=== PATIENT | female | born 1950 | race Caucasian/White ===

== ENCOUNTER → 2016-09-21 | Outpatient (CLI) | payer MEDICARE ==
[~2016-09-21] MED LIST: ADVAIR 250/5028 PUFF IN; ADVAIR DISK28 PUFFS IN; ALAVERT10 MG OR; AMLODIPINE10 MG PO; ASPIR-TRIN325 MG PO; ASPIRIN ADULT L81 M3 PO; ATIVAN0.5 MG PO; CARVEDILOL3.125 MG PO; CARVEDILOL6.25 MG PO; CELEXA20 MG PO; CLARITIN 10MG T10 MG PO; CLARITIN10 MG PO; COREG 3.125M3.125 MG PO; COREG 6.25MG6.25 MG PO; DALIRESP500 MCG PO; DELTASONE5 MG PO; DIAZEPAM2 M1 PO; DIOVAN320 MG PO; DOXAZOSIN MESYLA1 MG PO; DUONEB 3 MG/3 ML3 ML IH; EC NAPROSYN500 MG PO; FAMOTIDINE 20MG20 MG PO; FUROSEMIDE40 MG PO; GABAPENTIN100 M1 PO; GABAPENTIN100 MG PO; GLYBURIDE 5MG TA5 MG PO; GRALISE600 M1 PO; GUAIFENESIN PO; HYOSCYAMINE0.125 M1 PO; INSULIN GL100 UNITS/ SC; INSULIN GL100 UNITS1 SC; INSULIN RE100 UNITS/ SC; IPRATROPIUM BROM3 M1 IN; K-DUR 20MEQ TA20 MEQ PO; KEFLEX500 M1 PO; KLOR-CON M2020 MEQ PO; LANTUS INS100 UNITS/ SC; LASIX 40MG. TAB40 MG PO; LASIX40 MG PO; LEVAQUIN 750 M750 MG PO; LEVAQUIN500 MG PO; LEVSIN0.125 M1 PO; LISINOPRIL 20MG20 MG PO; MACROBID100 M3 PO; MEDROL 4MG. DOSE4 MG PO; METFORMIN 500M500 M1 PO; METFORMIN 500M500 MG PO; METOPROLOL SUCC25 M1 PO; METOPROLOL SUCC25 M2 PO; NAPROSYN 500MG500 MG PO; NEURONTIN 100100 MG PO; NORVASC 5MG. TAB5 MG PO; NOVOLOG FLEX100 U/ML SC; NYSTATIN AND TR1 CRE TP; OMNICEF 300 MG300 MG PO; ONGLYZA5 MG PO; PATANASE0.6% NS; PREDNISONE 10MG10 MG PO; PREDNISONE 20MG20 MG PO; PREDNISONE20 MG PO; RANITIDINE HCL150 MG PO; RANITIDINE150 M1 PO; SALMETEROL-F28 PUFFS IN; TESSALON PERLE100 M1 PO; THEO-24200 MG PO; TOPROL XL 25MG25 MG PO; TOUJEO300 U/ML SC; TUDORZA PR400 MCG/Ac IH; VENTOLIN H0.09 MG/AC IH; VITAMIN B-12100 MCG PO; ZAROXOLYN 2.5M2.5 MG PO
--- NOTE | 2016-09-22 10:27 | RADIOLOGY REPORT PS360 ---
MRI-BRAIN W/WO HISTORY: Right-sided headache with dizziness and blurred vision with memory loss. Squamous cell carcinoma of the lung. SQUAMOUS CELL CARCINOMA LUNG ORDERING PHYSICIAN: ROHAN LOPEZ MD PATIENT AGE: 66 years COMPARISON: None TECHNIQUE: Standard multiplanar multiecho sequences are performed without and with gadolinium enhancement . FINDINGS: No midline shift, mass effect, intracranial hemorrhage, or hydrocephalus is evident. No enhancing lesions are evident. No intra or extra-axial mass. There is mild generalized atrophy. There are scattered periventricular and subcortical T2 white matter hyperintensities. These do not demonstrate contrast enhancement or restricted diffusion. The cerebellopontine angles, cerebellum, and brainstem are unremarkable. The pituitary gland and optic chiasm have an unremarkable appearance. There is a small amount fluid in the left mastoid sinus. IMPRESSION: 1. No acute intracranial pathology. No convincing evidence of metastatic disease. 2. Mild atrophy with nonspecific T2 white matter hyperintensities consistent with ischemic gliotic change from microvascular disease. 3. Mild left mastoid sinus disease
== END ==
LOC: RAD 09:09
DX: C34.90 Malignant neoplasm of unspecified part of unspecified bronchus or lung (principal); Z03.89 Encounter for observation for other suspected diseases and conditions ruled out
CPT/HCPCS: A9576

== ENCOUNTER 2016-11-10 09:55 | Outpatient (CLI) | payer MEDICARE ==
[2016-11-10 10:52] VITALS: BP 153/76
[2016-11-10 11:17] VITALS: BP 146/77
[2016-11-10 11:35] VITALS: BP 148/74
== END 2016-11-10 11:40 | disposition home or self-care (01) ==
LOC: COP 09:55
DX: C34.12 Malignant neoplasm of upper lobe, left bronchus or lung (principal)
CPT/HCPCS: J1335; J1642

== ENCOUNTER 2016-11-11 09:40 | Outpatient (CLI) | payer MEDICARE ==
[~2016-11-11] VITALS: Ht 160 cm; Wt 80.7 kg
[2016-11-11 10:05] VITALS: BP 142/80
[2016-11-11 10:45] VITALS: BP 150/78
== END 2016-11-11 10:55 | disposition home or self-care (01) ==
LOC: COP 09:40
DX: C34.12 Malignant neoplasm of upper lobe, left bronchus or lung (principal)
CPT/HCPCS: J1335; J1642

== ENCOUNTER 2016-11-12 10:05 | Outpatient (CLI) | payer MEDICARE ==
[2016-11-12 10:30] VITALS: BP 126/66
== END 2016-11-12 11:00 | disposition home or self-care (01) ==
LOC: COP 10:05
DX: C34.12 Malignant neoplasm of upper lobe, left bronchus or lung (principal)

== ENCOUNTER → 2016-11-13 | Outpatient (CLI) | payer MEDICARE ==
[~2016-11-13] VITALS: Ht 160 cm; Wt 79.8 kg
[~2016-11-13] MED LIST changes: +PERCOCET1 TAB PO
[2016-11-13 10:39] VITALS: BP 140/70
[2016-11-13 11:38] VITALS: BP 135/64
== END ==
LOC: COP 08:00
DX: C34.12 Malignant neoplasm of upper lobe, left bronchus or lung (principal)
CPT/HCPCS: J1335

== ENCOUNTER 2016-11-14 09:56 | Outpatient (CLI) | payer MEDICARE ==
[~2016-11-14 09:56] MED LIST changes: -PERCOCET1 TAB PO
[2016-11-14] MEDS ORDERED: PERCOCET1 TAB PO (10:05)
[2016-11-14 10:08] VITALS: BP 148/73
[2016-11-14 10:38] VITALS: BP 144/71
[2016-11-14 11:00] VITALS: BP 142/69
== END 2016-11-14 11:00 | disposition home or self-care (01) ==
LOC: COP 09:56
DX: C34.12 Malignant neoplasm of upper lobe, left bronchus or lung (principal)
CPT/HCPCS: J1335; J1642

== ENCOUNTER 2016-11-15 11:00 | Outpatient (CLI) | payer MEDICARE ==
[~2016-11-15 11:00] MED LIST changes: +PERCOCET1 TAB PO
[2016-11-15 11:10] VITALS: BP 108/66
[2016-11-15 11:50] VITALS: BP 150/78
== END 2016-11-15 12:00 | disposition home or self-care (01) ==
LOC: COP 11:00
DX: C34.12 Malignant neoplasm of upper lobe, left bronchus or lung (principal)
CPT/HCPCS: J1335

== ENCOUNTER 2016-11-16 10:30 | Outpatient (CLI) | payer MEDICARE ==
[~2016-11-16] VITALS: Ht 160 cm; Wt 80.7 kg
[2016-11-16 11:00] VITALS: BP 134/80
[2016-11-16 11:30] VITALS: BP 134/77
== END 2016-11-16 11:50 | disposition home or self-care (01) ==
LOC: COP 10:30
DX: C34.12 Malignant neoplasm of upper lobe, left bronchus or lung (principal)
CPT/HCPCS: J1335; J1642

== ENCOUNTER 2016-11-17 09:55 | Outpatient (CLI) | payer MEDICARE ==
[2016-11-17 10:24] VITALS: BP 118/58
[2016-11-17 10:39] VITALS: BP 121/54
[2016-11-17 11:00] VITALS: BP 119/57
== END 2016-11-17 11:15 | disposition home or self-care (01) ==
LOC: COP 09:55
DX: C34.12 Malignant neoplasm of upper lobe, left bronchus or lung (principal)
CPT/HCPCS: J1335; J1642

== ENCOUNTER 2016-11-18 10:12 | Outpatient (CLI) | payer MEDICARE ==
[2016-11-18 10:22] VITALS: BP 131/67
[2016-11-18 11:05] VITALS: BP 129/74
== END 2016-11-18 11:10 | disposition home or self-care (01) ==
LOC: COP 10:12
DX: C34.12 Malignant neoplasm of upper lobe, left bronchus or lung (principal)
CPT/HCPCS: J1335; J1642

== ENCOUNTER → 2016-11-23 | Outpatient (CLI) | payer MEDICARE ==
--- NOTE | 2016-11-23 11:36 | RADIOLOGY REPORT PS360 ---
BONE DENSITOMETRY(HIP:LT SPINE HISTORY: POST MENOPUSAL ORDERING PHYSICIAN: David Cano MD PATIENT AGE: 66 years COMPARISON: None FINDINGS: The BMD measured at the L1-L4 is 0.909 g/sq cm with a T score of -2.3 consistent with osteopenia. Moderate fracture risk. Treatment recommended. The mean density of the hips is 0.866 g/sq cm meters squared with a T score of -1.2 consistent with osteopenia. IMPRESSION: Osteopenia. Moderate fracture risk, treatment recommended. Recommend follow-up exam November 2018
--- NOTE | 2016-11-24 21:56 | RADIOLOGY REPORT PS360 ---
DIG MAMM-SCREEN SARAH W/CAD CAD Screening ORDERING PHYSICIAN : David Cano MD PATIENT AGE: 66 years GENDER: Female COMPARISON: Previous mammograms: August 2015, March 2013 INDICATION: Routine screening no hormones no new complaints noncontributory family history. Indwelling catheter/ & Port right breast for lung cancer treatment TECHNIQUE: Standard CC and MLO images were obtained. R2 CAD reviewed. FINDINGS: Low-density breast bilaterally with no dominant mass nor suspicious calcifications. No significant interval change since 2015 CAD highlights no significant findings.... Faint vascular calcifications bilaterally highlighted. IMPRESSION: Stable bilateral mammogram no new areas of concern. BI-RADS CATEGORY: 1_Negative RECOMMENDED FOLLOWUP: 12M 12 MONTH FOLLOW-UP (A letter has been sent to the patient regarding results of the study.)
== END ==
LOC: RAD 09:56
DX: Z12.31 Encounter for screening mammogram for malignant neoplasm of breast (principal); Z78.0 Asymptomatic menopausal state; Z13.820 Encounter for screening for osteoporosis
CPT/HCPCS: G0202

== ENCOUNTER 2017-02-20 17:53 | Inpatient (IN) | payer MEDICARE ==
[~2017-02-20] VITALS: Ht 160 cm; Wt 78.6 kg
[~2017-02-20 17:53] MED LIST changes: +DICYCLOMINE HCL20 MG PO
--- OUTSIDE RECORDS SUMMARY | 2017-02-20 17:56 | External Medical Summary Rpt ---
Author Author , CHEYENNE FLORENTINO Address Unknown Phone [email or web address] Purpose Continuity of Care Document - 11-28-2016 through 2016 Results Labs Lab Lab Date Result Refere Interp Status Commen Order Detail nces retati t Range on Hemoglobin A1c in Blood (11-28-2016 09:55) Hemoglo 9.6 % 0.0% High complet bin A1c 017 - ed in 09:55 7.0% Blood
--- OUTSIDE RECORDS SUMMARY | 2017-02-20 17:56 | External Medical Summary Rpt ---
Author Author , CHEYENNE FLORENTINO Address Unknown Phone [email or web address] Purpose Continuity of Care Document - 11-28-2016 through 2016 Results Labs Lab Lab Date Result Refere Interp Status Commen Order Detail nces retati t Range on Hemoglobin A1c in Blood (11-28-2016 09:55) Hemoglo 9.6 % 0.0% High complet bin A1c 017 - ed in 09:55 7.0% Blood
--- OUTSIDE RECORDS SUMMARY | 2017-02-20 17:56 | External Medical Summary Rpt ---
Demographics Preferred Language Arabic Marital Status Unknown Christianity Affiliation Unknown Race Unknown Ethnic Group Unknown Author Author CHEYENNE Address Unknown Phone Immunization No patient found.
--- OUTSIDE RECORDS SUMMARY | 2017-02-20 17:56 | External Medical Summary Rpt ---
Demographics Preferred Language Kazakh Marital Status Unknown Latter-Day Affiliation Unknown Race Unknown Ethnic Group Unknown Author Author CHEYENNE Address Unknown Phone Immunization No patient found.
--- OUTSIDE RECORDS SUMMARY | 2017-02-20 17:56 | External Medical Summary Rpt ---
Author Author CHADD Address Unknown Phone [email or web address] Purpose Continuity of Care Document - through 2016
--- OUTSIDE RECORDS SUMMARY | 2017-02-20 17:56 | External Medical Summary Rpt ---
Author Author CHADD Address Unknown Phone [email or web address] Purpose Continuity of Care Document - through 2016
--- OUTSIDE RECORDS SUMMARY | 2017-02-20 17:58 | External Medical Summary Rpt ---
Author Author [facility] [employer], [facility] [employer] Organization [facility] [employer] Address Unknown Phone Unavailable Results CBC W Auto Differential panel in Blood Observa Value Referen Units Interpr Notes Date tion ce etation Range Basophils 0 - 0.2 K/MM3 Normal No Feb 07 inform2016 [#/volume on in 11:05 AM ] in source Blood by data Automated count Basophils 0.1 - 2.0 % Normal No Feb 07 /2016 leukocyte on in 11:05 AM s in source Blood by data Automated count Eosinophi 0.0 - 0.4 K/mm3 Normal No Feb 07 ls 2016 [#/volume on in 11:05 AM ] in source Blood by data Automated count Eosinophi 0.1 - % Normal No Feb 07 ls/100 12.0 2016 leukocyte on in 11:05 AM s in source Blood by data Automated count Granulocy 1.8 - 7.8 K/mm3 Normal No Feb 07 alejandra 2016 [#/volume on in 11:05 AM ] in source Blood by data Automated count Granulocy 37.0 - % Normal No Feb 07 alejandra/100 80.0 2016 leukocyte on in 11:05 AM s in source Blood by data Automated count Hematocri 37.0 - % Normal No Feb 07 t [Volume 47.0 ati 2016 on in 11:05 AM Fraction] source of Blood data Hemoglobi 12.2 - g/dL Normal No Feb 07 n 16.2 2016 [Mass/vol on in 11:05 AM ume] in source Blood data Lymphocyt 0.7 - 4.5 K/mm3 Normal No Feb 07 es 2016 [#/volume on in 11:05 AM ] in source Unspecifi data ed specimen by Automated count Lymphocyt 10 - 50.0 % Normal No Feb 07 es 2016 [#/volume on in 11:05 AM ] in source Unspecifi data ed specimen by Automated count Erythrocy 27 - 31.2 pg Normal No Feb 07 te mean 2016 corpuscul on in 11:05 AM ar source hemoglobi data n [Entitic mass] Erythrocy 31.8 - g/dl Normal No Feb 07 te mean 35.4 2016 corpuscul on in 11:05 AM ar source hemoglobi data n concentra tion [Mass/vol ume] by Automated count Erythrocy 82.2 - fl Normal No Feb 07 te mean 97.8 2016 corpuscul on in 11:05 AM ar volume source [Entitic data volume] by Automated count Monocytes 0.1 - 1.0 K/mm3 Normal No Feb 072016 [#/volume on in 11:05 AM ] in source Blood by data Automated count Monocytes 1.7 - 9.3 % Normal No Feb 072016 leukocyte on in 11:05 AM s in source Blood by data Automated count Platelet 7.4 - fl Low No Feb 07 mean 10.4 2016 volume on in 11:05 AM [Entitic source volume] data in Blood by Automated count Platelets 142 - 424 K/mm3 Normal No Feb 072016 [#/volume on in 11:05 AM ] in source Blood data Erythrocy 4.2 - 5.4 M/mm3 Normal No Feb 07 alejandra 2016 [#/volume on in 11:05 AM ] in source Amniotic data fluid Erythrocy 11.5 - % Normal No Feb 07 te 17.5 2016 distribut on in 11:05 AM ion width source [Entitic data volume] by Automated count Leukocyte 4.8 - K/MM3 Normal No Feb 07 s 10.8 2016 [#/volume on in 11:05 AM ] in source Blood data CBC W Auto Differential panel in Blood Observa Value Referen Units Interpr Notes Date tion ce etation Range Basophils 0 - 0.2 K/MM3 Normal No Jan 25ati 2016 9:55 [#/volume on in AM ] in source Blood by data Automated count Basophils 0.1 - 2.0 % Normal No Jan 25 informati 2016 9:55 leukocyte on in AM s in source Blood by data Automated count Eosinophi 0.0 - 0.4 K/mm3 Normal No Jan 25 ls informati 2016 9:55 [#/volume on in AM ] in source Blood by data Automated count Eosinophi 0.1 - % Normal No Jan 25/100 12.0 informati 2017 9:55 leukocyte on in AM s in source Blood by data Automated count Granulocy 1.8 - 7.8 K/mm3 Normal No Jan 25 alejandra informati 2017 9:55 [#/volume on in AM ] in source Blood by data Automated count Granulocy 37.0 - % Normal No Jan 25 alejandra/100 80.0 informati 2017 9:55 leukocyte on in AM s in source Blood by data Automated count Hematocri 37.0 - % Normal No Jan 25 t [Volume 47.0 informati 2017 9:55 on in AM Fraction] source of Blood data Hemoglobi 12.2 - g/dL Normal No Jan 25 n 16.2 informati 2017 9:55 [Mass/vol on in AM ume] in source Blood data Lymphocyt 0.7 - 4.5 K/mm3 Normal No Jan 25 es informati 2017 9:55 [#/volume on in AM ] in source Unspecifi data ed specimen by Automated count Lymphocyt 10 - 50.0 % Normal No Jan 25 es informati 2016 9:55 [#/volume on in AM ] in source Unspecifi data ed specimen by Automated count Erythrocy 27 - 31.2 pg Normal No Jan 25 te mean informati 2016 9:55 corpuscul on in AM ar source hemoglobi data n [Entitic mass] Erythrocy 31.8 - g/dl Normal No Jan 25 te mean 35.4 informati 2016 9:55 corpuscul on in AM ar source hemoglobi data n concentra tion [Mass/vol ume] by Automated count Erythrocy 82.2 - fl Normal No Jan 25 te mean 97.8 informati 2016 9:55 corpuscul on in AM ar volume source [Entitic data volume] by Automated count Monocytes 0.1 - 1.0 K/mm3 Normal No Jan 25 informati 2017 9:55 [#/volume on in AM ] in source Blood by data Automated count Monocytes 1.7 - 9.3 % Normal No Jan 25 / informati 2017 9:55 leukocyte on in AM s in source Blood by data Automated count Platelet 7.4 - fl Low No Jan 25 mean 10.4 informati 2016 9:55 volume on in AM [Entitic source volume] data in Blood by Automated count Platelets 142 - 424 K/mm3 Normal No Jan 25 informati 2017 9:55 [#/volume on in AM ] in source Blood data Erythrocy 4.2 - 5.4 M/mm3 Normal No Jan 25 alejandra informati 2017 9:55 [#/volume on in AM ] in source Amniotic data fluid Erythrocy 11.5 - % Normal No Jan 25 te 17.5 informati 2017 9:55 distribut on in AM ion width source [Entitic data volume] by Automated count Leukocyte 4.8 - K/MM3 Normal No Jan 25 s 10.8 informati 2016 9:55 [#/volume on in AM ] in source Blood data Comprehensive metabolic 2000 panel in Serum or Plasma Observa Value Referen Units Interpr Notes Date tion ce etation Range Albumin/G 1.1 - 1.8 No Low No Jan 18 lobulin informati informati 2016 9:00 [Mass on in on in AM ratio] in source source Serum or data data Plasma Albumin 3.4 - 5.0 gm/dL Low No Jan 18 [Mass/vol informati 2016 9:00 ume] in on in AM Serum or source Plasma data Alkaline 46 - 116 U/L Normal No Jan 18 phosphata informati 2016 9:00 se on in AM [Enzymati source c data activity/ volume] in Serum or Plasma Bilirubin 0.2 - 1.0 mg/dL Normal No Jan 18 .total informati 2016 9:00 [Mass/vol on in AM ume] in source Serum or data Plasma Urea 7 - 18 mg/dL Normal No Jan 18 nitrogen informati 2016 9:00 [Mass/vol on in AM ume] in source Serum or data Plasma Calcium 8.5 - mg/dL Low No Jan 18 [Mass/vol 10.1 informati 2016 9:00 ume] in on in AM Serum or source Plasma data Chloride 98 - 107 mmoL/L Normal No Jan 18 [Moles/vo informati 2016 9:00 lume] in on in AM Serum or source Plasma data Carbon 21.0 - mmoL/L Normal No Jan 18 dioxide, 32.0 informati 2017 9:00 total on in AM [Moles/vo source lume] in data Serum or Plasma Creatinin 0.55 - mg/dL Normal No Jan 18 e 1.02 informati 2017 9:00 [Mass/vol on in AM ume] in source Serum or data Plasma Estimated 59- ML/MIN No REFERENCE Jan 18 informati RANGE: 2017 9:00 glomerula on in >60 AM r source ML/MIN/1. filtratio data 73 SQUARE n rate METERSIf (GF this patient is -A merican, then multiply theresult by 1.210. Globulin 1.3 - 3.2 gm/dL High No Jan 18 [Mass/vol informati 2016 9:00 ume] in on in AM Serum source data Glucose 74 - 106 mg/dL Normal No Jan 18 [Mass/vol informati 2016 9:00 ume] in on in AM Serum or source Plasma data Potassium 3.5 - 5.1 mmoL/L Normal No Jan 182016 9:00 [Moles/vo on in AM lume] in source Serum or data Plasma Sodium 136 - 145 mmoL/L Normal No Jan 18 [Moles/vo informati 2016 9:00 lume] in on in AM Serum or source Plasma data Aspartate 15 - 37 U/L Low No Jan 182016 9:00 aminotran on in AM sferase source [Enzymati data c activity/ volume] in Serum or Plasma Alanine 12 - 78 U/L Normal No Jan 18 aminotran informati 2016 9:00 sferase on in AM [Enzymati source c data activity/ volume] in Serum or Plasma Protein 6.4 - 8.2 gm/dL Normal No Jan 18 [Mass/vol informati 2016 9:00 ume] in on in AM Serum or source Plasma data CBC W Auto Differential panel in Blood Observa Value Referen Units Interpr Notes Date tion ce etation Range Basophils 0 - 0.2 K/MM3 Normal No Jan 182016 9:00 [#/volume on in AM ] in source Blood by data Automated count Basophils 0.1 - 2.0 % Normal No Jan 18 informati 2016 9:00 leukocyte on in AM s in source Blood by data Automated count Eosinophi 0.0 - 0.4 K/mm3 Normal No Jan 18 ls informati 2016 9:00 [#/volume on in AM ] in source Blood by data Automated count Eosinophi 0.1 - % Normal No Jan 18 ls/100 12.0 informati 2016 9:00 leukocyte on in AM s in source Blood by data Automated count Granulocy 1.8 - 7.8 K/mm3 Normal No Jan 18 alejandra ati 2016 9:00 [#/volume on in AM ] in source Blood by data Automated count Granulocy 37.0 - % Normal No Jan 18 alejandra/100 80.0 informati 2016 9:00 leukocyte on in AM s in source Blood by data Automated count Hematocri 37.0 - % Normal No Jan 18 t [Volume 47.0 informati 2016 9:00 on in AM Fraction] source of Blood data Hemoglobi 12.2 - g/dL Normal No Jan 18 n 16.2 informati 2016 9:00 [Mass/vol on in AM ume] in source Blood data Lymphocyt 0.7 - 4.5 K/mm3 Normal No Jan 18 es informati 2016 9:00 [#/volume on in AM ] in source Unspecifi data ed specimen by Automated count Lymphocyt 10 - 50.0 % Normal No Jan 18 es informati 2016 9:00 [#/volume on in AM ] in source Unspecifi data ed specimen by Automated count Erythrocy 27 - 31.2 pg Normal No Jan 18 te mean informati 2016 9:00 corpuscul on in AM ar source hemoglobi data n [Entitic mass] Erythrocy 31.8 - g/dl Normal No Jan 18 te mean 35.4 informati 2016 9:00 corpuscul on in AM ar source hemoglobi data n concentra tion [Mass/vol ume] by Automated count Erythrocy 82.2 - fl Normal No Jan 18 te mean 97.8 informati 2016 9:00 corpuscul on in AM ar volume source [Entitic data volume] by Automated count Monocytes 0.1 - 1.0 K/mm3 Normal No Jan 18 informati 2016 9:00 [#/volume on in AM ] in source Blood by data Automated count Monocytes 1.7 - 9.3 % Normal No Jan 18 / informati 2017 9:00 leukocyte on in AM s in source Blood by data Automated count Platelet 7.4 - fl Low No Jan 18 mean 10.4 informati 2016 9:00 volume on in AM [Entitic source volume] data in Blood by Automated count Platelets 142 - 424 K/mm3 Normal No Jan 18 informati 2016 9:00 [#/volume on in AM ] in source Blood data Erythrocy 4.2 - 5.4 M/mm3 Low No Jan 18 alejandra informati 2016 9:00 [#/volume on in AM ] in source Amniotic data fluid Erythrocy 11.5 - % Normal No Jan 18 te 17.5 informati 2017 9:00 distribut on in AM ion width source [Entitic data volume] by Automated count Leukocyte 4.8 - K/MM3 Normal No Jan 18 s 10.8 informati 2016 9:00 [#/volume on in AM ] in source Blood data CBC W Auto Differential panel in Blood Observa Value Referen Units Interpr Notes Date tion ce etation Range Basophils 0 - 0.2 K/MM3 Normal No Jan 04 informati 2016 8:15 [#/volume on in AM ] in source Blood by data Automated count Basophils 0.1 - 2.0 % Normal No Jan 04 /100 informati 2016 8:15 leukocyte on in AM s in source Blood by data Automated count Eosinophi 0.0 - 0.4 K/mm3 Normal No Jan 04 ls informati 2016 8:15 [#/volume on in AM ] in source Blood by data Automated count Eosinophi 0.1 - % Normal No Jan 04 ls/100 12.0 informati 2016 8:15 leukocyte on in AM s in source Blood by data Automated count Granulocy 1.8 - 7.8 K/mm3 Normal No Jan 04 alejandra informati 2016 8:15 [#/volume on in AM ] in source Blood by data Automated count Granulocy 37.0 - % Normal No Jan 04 alejandra/100 80.0 informati 2016 8:15 leukocyte on in AM s in source Blood by data Automated count Hematocri 37.0 - % Normal No Jan 04 t [Volume 47.0 informati 2016 8:15 on in AM Fraction] source of Blood data Hemoglobi 12.2 - g/dL Normal No Jan 04 n 16.2 informati 2016 8:15 [Mass/vol on in AM ume] in source Blood data Lymphocyt 0.7 - 4.5 K/mm3 Normal No Jan 04 es informati 2016 8:15 [#/volume on in AM ] in source Unspecifi data ed specimen by Automated count Lymphocyt 10 - 50.0 % Normal No Jan 04 es informati 2016 8:15 [#/volume on in AM ] in source Unspecifi data ed specimen by Automated count Erythrocy 27 - 31.2 pg Normal No Jan 04 te mean informati 2016 8:15 corpuscul on in AM ar source hemoglobi data n [Entitic mass] Erythrocy 31.8 - g/dl Normal No Jan 04 te mean 35.4 informati 2016 8:15 corpuscul on in AM ar source hemoglobi data n concentra tion [Mass/vol ume] by Automated count Erythrocy 82.2 - fl Normal No Jan 04 te mean 97.8 inform2016 8:15 corpuscul on in AM ar volume source [Entitic data volume] by Automated count Monocytes 0.1 - 1.0 K/mm3 Normal No Jan 04 inform2016 8:15 [#/volume on in AM ] in source Blood by data Automated count Monocytes 1.7 - 9.3 % Normal No Jan 04 /100 informati 2016 8:15 leukocyte on in AM s in source Blood by data Automated count Platelet 7.4 - fl Low No Jan 04 mean 10.4 informati 2016 8:15 volume on in AM [Entitic source volume] data in Blood by Automated count Platelets 142 - 424 K/mm3 Normal No Jan 04 inform2016 8:15 [#/volume on in AM ] in source Blood data Erythrocy 4.2 - 5.4 M/mm3 Normal No Jan 04 alejandra informati 2016 8:15 [#/volume on in AM ] in source Amniotic data fluid Erythrocy 11.5 - % Normal No Jan 04 te 17.5 informati 2016 8:15 distribut on in AM ion width source [Entitic data volume] by Automated count Leukocyte 4.8 - K/MM3 Normal No Jan 04 s 10.8 inform2016 8:15 [#/volume on in AM ] in source Blood data CBC W Auto Differential panel in Blood Observa Value Referen Units Interpr Notes Date tion ce etation Range Basophils 0 - 0.2 K/MM3 Normal No Jan 01 inform2016 [#/volume on in 11:15 AM ] in source Blood by data Automated count Basophils 0.1 - 2.0 % Normal No Jan 01 / informati 2016 leukocyte on in 11:15 AM s in source Blood by data Automated count Eosinophi 0.0 - 0.4 K/mm3 Normal No Jan 01 ls informati 2016 [#/volume on in 11:15 AM ] in source Blood by data Automated count Eosinophi 0.1 - % Normal No Jan 01 ls/100 12.0 informati 2016 leukocyte on in 11:15 AM s in source Blood by data Automated count Granulocy 1.8 - 7.8 K/mm3 Normal No Jan 01 alejandra informati 2016 [#/volume on in 11:15 AM ] in source Blood by data Automated count Granulocy 37.0 - % Normal No Jan 01 alejandra/100 80.0 informati 2016 leukocyte on in 11:15 AM s in source Blood by data Automated count Hematocri 37.0 - % Normal No Jan 01 t [Volume 47.0 informati 2016 on in 11:15 AM Fraction] source of Blood data Hemoglobi 12.2 - g/dL Normal No Jan 01 n 16.2 informati 2016 [Mass/vol on in 11:15 AM ume] in source Blood data Lymphocyt 0.7 - 4.5 K/mm3 Normal No Jan 01 es informati 2016 [#/volume on in 11:15 AM ] in source Unspecifi data ed specimen by Automated count Lymphocyt 10 - 50.0 % Normal No Jan 01 es informati 2016 [#/volume on in 11:15 AM ] in source Unspecifi data ed specimen by Automated count Erythrocy 27 - 31.2 pg Normal No Jan 01 te mean inform2016 corpuscul on in 11:15 AM ar source hemoglobi data n [Entitic mass] Erythrocy 31.8 - g/dl Normal No Jan 01 te mean 35.4 informati 2016 corpuscul on in 11:15 AM ar source hemoglobi data n concentra tion [Mass/vol ume] by Automated count Erythrocy 82.2 - fl Normal No Jan 01 te mean 97.8 informati 2016 corpuscul on in 11:15 AM ar volume source [Entitic data volume] by Automated count Monocytes 0.1 - 1.0 K/mm3 Normal No Jan 01 informati 2016 [#/volume on in 11:15 AM ] in source Blood by data Automated count Monocytes 1.7 - 9.3 % Normal No Jan 01 /100 informati 2017 leukocyte on in 11:15 AM s in source Blood by data Automated count Platelet 7.4 - fl Normal No Jan 01 mean 10.4 informati 2016 volume on in 11:15 AM [Entitic source volume] data in Blood by Automated count Platelets 142 - 424 K/mm3 Normal No Jan 01 informati 2016 [#/volume on in 11:15 AM ] in source Blood data Erythrocy 4.2 - 5.4 M/mm3 Normal No Jan 01 alejandra informati 2016 [#/volume on in 11:15 AM ] in source Amniotic data fluid Erythrocy 11.5 - % Normal No Jan 01 te 17.5 informati 2016 distribut on in 11:15 AM ion width source [Entitic data volume] by Automated count Leukocyte 4.8 - K/MM3 Normal No Jan 01 s 10.8 informati 2016 [#/volume on in 11:15 AM ] in source Blood data Glucose [Mass/volume] in Capillary blood by Glucometer Observa Value Referen Units Interpr Notes Date tion ce etation Range Glucose 70 - 110 mg/dl High No Jan 01 [Mass/vol informati 2016 ume] in on in 11:09 AM Capillary source blood by data Glucomete r Comprehensive metabolic 2000 panel in Serum or Plasma Observa Value Referen Units Interpr Notes Date tion ce etation Range COMMENTS TO CRACKER SPRAYER: DRAWN PER RN Albumin/G 1.1 - 1.8 No Low No Dec 28 lobulin informati informati 2016 8:15 [Mass on in on in AM ratio] in source source Serum or data data Plasma Albumin 3.4 - 5.0 gm/dL Low No Dec 28 [Mass/vol informati 2016 8:15 ume] in on in AM Serum or source Plasma data Alkaline 46 - 116 U/L Normal No Dec 28 phosphata informati 2016 8:15 se on in AM [Enzymati source c data activity/ volume] in Serum or Plasma Bilirubin 0.2 - 1.0 mg/dL Normal No Dec 28 .total informati 2016 8:15 [Mass/vol on in AM ume] in source Serum or data Plasma Urea 7 - 18 mg/dL Normal No Dec 28 nitrogen informati 2016 8:15 [Mass/vol on in AM ume] in source Serum or data Plasma Calcium 8.5 - mg/dL Low No Dec 28 [Mass/vol 10.1 informati 2017 8:15 ume] in on in AM Serum or source Plasma data Chloride 98 - 107 mmoL/L Normal No Dec 28 [Moles/vo informati 2016 8:15 lume] in on in AM Serum or source Plasma data Carbon 21.0 - mmoL/L Normal No Dec 28 dioxide, 32.0 informati 2017 8:15 total on in AM [Moles/vo source lume] in data Serum or Plasma Creatinin 0.55 - mg/dL High No Dec 28 e 1.02 informati 2017 8:15 [Mass/vol on in AM ume] in source Serum or data Plasma Creatinin 50 - 200 ML/MIN Normal No Dec 28 e renal informati 2016 8:15 clearance on in AM source predicted data by Cockcroft -Gault formula Estimated 59- ML/MIN Low REFERENCE Dec 28 RANGE: 2016 8:15 glomerula >60 AM r ML/MIN/1. filtratio 73 SQUARE n rate METERSIf (GF this patient is -A merican, then multiply theresult by 1.210. Globulin 1.3 - 3.2 gm/dL High No Dec 28 [Mass/vol informati 2016 8:15 ume] in on in AM Serum source data Glucose 74 - 106 mg/dL High No Dec 28 [Mass/vol informati 2016 8:15 ume] in on in AM Serum or source Plasma data Potassium 3.5 - 5.1 mmoL/L Normal No Dec 28 inform2016 8:15 [Moles/vo on in AM lume] in source Serum or data Plasma Sodium 136 - 145 mmoL/L Normal No Dec 28 [Moles/vo informati 2016 8:15 lume] in on in AM Serum or source Plasma data Aspartate 15 - 37 U/L Low No Dec 28 informati 2016 8:15 aminotran on in AM sferase source [Enzymati data c activity/ volume] in Serum or Plasma Alanine 12 - 78 U/L Normal No Dec 28 aminotran informati 2016 8:15 sferase on in AM [Enzymati source c data activity/ volume] in Serum or Plasma Protein 6.4 - 8.2 gm/dL Normal No Dec 28 [Mass/vol informati 2016 8:15 ume] in on in AM Serum or source Plasma data CBC W Auto Differential panel in Blood Observa Value Referen Units Interpr Notes Date tion ce etation Range COMMENTS TO CRACKER SPRAYER: DRAWN PER RN Basophils 0 - 0.2 K/MM3 Normal No Dec 28 informati 2016 8:15 [#/volume on in AM ] in source Blood by data Automated count Basophils 0.1 - 2.0 % Normal No Dec 28 /100 informati 2016 8:15 leukocyte on in AM s in source Blood by data Automated count Eosinophi 0.0 - 0.4 K/mm3 Normal No Dec 28 ls informati 2016 8:15 [#/volume on in AM ] in source Blood by data Automated count Eosinophi 0.1 - % Normal No Dec 28 ls/100 12.0 informati 2017 8:15 leukocyte on in AM s in source Blood by data Automated count Granulocy 1.8 - 7.8 K/mm3 Normal No Dec 28 alejandra informati 2016 8:15 [#/volume on in AM ] in source Blood by data Automated count Granulocy 37.0 - % Normal No Dec 28 alejandra/100 80.0 informati 2016 8:15 leukocyte on in AM s in source Blood by data Automated count Hematocri 37.0 - % Normal No Dec 28 t [Volume 47.0 informati 2016 8:15 on in AM Fraction] source of Blood data Hemoglobi 12.2 - g/dL Normal No Dec 28 n 16.2 informati 2016 8:15 [Mass/vol on in AM ume] in source Blood data Lymphocyt 0.7 - 4.5 K/mm3 Normal No Dec 28 es informati 2016 8:15 [#/volume on in AM ] in source Unspecifi data ed specimen by Automated count Lymphocyt 10 - 50.0 % Normal No Dec 28 es informati 2016 8:15 [#/volume on in AM ] in source Unspecifi data ed specimen by Automated count Erythrocy 27 - 31.2 pg Normal No Dec 28 te mean informati 2016 8:15 corpuscul on in AM ar source hemoglobi data n [Entitic mass] Erythrocy 31.8 - g/dl Normal No Dec 28 te mean 35.4 informati 2016 8:15 corpuscul on in AM ar source hemoglobi data n concentra tion [Mass/vol ume] by Automated count Erythrocy 82.2 - fl Normal No Dec 28 te mean 97.8 informati 2016 8:15 corpuscul on in AM ar volume source [Entitic data volume] by Automated count Monocytes 0.1 - 1.0 K/mm3 Normal No Dec 28 informati 2017 8:15 [#/volume on in AM ] in source Blood by data Automated count Monocytes 1.7 - 9.3 % Normal No Jayjay 21 /100 informati 2017 8:15 leukocyte on in AM s in source Blood by data Automated count Platelet 7.4 - fl Low No Dec 28 mean 10.4 informati 2016 8:15 volume on in AM [Entitic source volume] data in Blood by Automated count Platelets 142 - 424 K/mm3 Normal No Dec 28 informati 2016 8:15 [#/volume on in AM ] in source Blood data Erythrocy 4.2 - 5.4 M/mm3 Normal No Dec 28 alejandra informati 2016 8:15 [#/volume on in AM ] in source Amniotic data fluid Erythrocy 11.5 - % Normal No Dec 28 te 17.5 informati 2016 8:15 distribut on in AM ion width source [Entitic data volume] by Automated count Leukocyte 4.8 - K/MM3 Normal No Dec 28 s 10.8 informati 2016 8:15 [#/volume on in AM ] in source Blood data Basic metabolic panel in Blood Observa Value Referen Units Interpr Notes Date tion ce etation Range COMMENTS TO CRACKER SPRAYER: DRAWN PER RN SPECIMEN COMMENT: PT WAITING ON RESULTS Urea 7 - 18 mg/dL Normal No Dec 23 nitrogen informati 2016 [Mass/vol on in 11:03 AM ume] in source Serum or data Plasma Calcium 8.5 - mg/dL Low No Dec 23 [Mass/vol 10.1 informati 2016 ume] in on in 11:03 AM Serum or source Plasma data Chloride 98 - 107 mmoL/L Normal No Dec 23 [Moles/vo informati 2016 lume] in on in 11:03 AM Serum or source Plasma data Carbon 21.0 - mmoL/L Normal No Dec 23 dioxide, 32.0 informati 2016 total on in 11:03 AM [Moles/vo source lume] in data Serum or Plasma Creatinin 0.55 - mg/dL No No Dec 23 e 1.02 informati informati 2016 [Mass/vol on in on in 11:03 AM ume] in source source Serum or data data Plasma Estimated 59- ML/MIN No REFERENCE Dec 23 informati RANGE: 2017 glomerula on in >60 11:03 AM r source ML/MIN/1. filtratio data 73 SQUARE n rate METERSIf (GF this patient is -A merican, then multiply theresult by 1.210. Glucose 74 - 106 mg/dL High No Dec 16 [Mass/vol informati 2017 ume] in on in 11:03 AM Serum or source Plasma data Potassium 3.5 - 5.1 mmoL/L Low alert Dec 23 2016 [Moles/vo CRITICAL 11:03 AM lume] in RESULTS Serum or Plasma RESU LTS CALLED TO: [facility] 12/23/16 1125 Vikash,Rich jose luis Sodium 136 - 145 mmoL/L Normal No Dec 16 [Moles/vo informati 2016 lume] in on in 11:03 AM Serum or source Plasma data Comprehensive metabolic 2000 panel in Serum or Plasma Observa Value Referen Units Interpr Notes Date tion ce etation Range Albumin/G 1.1 - 1.8 No Low No Dec 14 lobulin informati informati 2016 8:30 [Mass on in on in AM ratio] in source source Serum or data data Plasma Albumin 3.4 - 5.0 gm/dL Low No Dec 14 [Mass/vol informati 2016 8:30 ume] in on in AM Serum or source Plasma data Alkaline 46 - 116 U/L Normal No Dec 14 phosphata informati 2016 8:30 se on in AM [Enzymati source c data activity/ volume] in Serum or Plasma Bilirubin 0.2 - 1.0 mg/dL Normal No Dec 14 .total informati 2016 8:30 [Mass/vol on in AM ume] in source Serum or data Plasma Urea 7 - 18 mg/dL Normal No Dec 21 nitrogen informati 2016 8:30 [Mass/vol on in AM ume] in source Serum or data Plasma Calcium 8.5 - mg/dL Low No Dec 21 [Mass/vol 10.1 informati 2016 8:30 ume] in on in AM Serum or source Plasma data Chloride 98 - 107 mmoL/L Normal No Dec 14 [Moles/vo informati 2016 8:30 lume] in on in AM Serum or source Plasma data Carbon 21.0 - mmoL/L Normal No Dec 14 dioxide, 32.0 informati 2017 8:30 total on in AM [Moles/vo source lume] in data Serum or Plasma Creatinin 0.55 - mg/dL Normal No Dec 14 e 1.02 informati 2017 8:30 [Mass/vol on in AM ume] in source Serum or data Plasma Creatinin 50 - 200 ML/MIN Normal No Dec 21 e renal informati 2017 8:30 clearance on in AM source predicted data by Cockcroft -Gault formula Estimated 59- ML/MIN Low REFERENCE Dec 14 RANGE: 2017 8:30 glomerula >60 AM r ML/MIN/1. filtratio 73 SQUARE n rate METERSIf (GF this patient is -A merican, then multiply theresult by 1.210. Globulin 1.3 - 3.2 gm/dL High No Dec 21 [Mass/vol informati 2016 8:30 ume] in on in AM Serum source data Glucose 74 - 106 mg/dL High Dec 21 [Mass/vol 2016 8:30 ume] in CRITICAL AM Serum or RESULTS Plasma RESU LTS CALLED TO: JUAREZA 12/21/16 0920 David Yoder Potassium 3.5 - 5.1 mmoL/L Low alert Dec 21 2016 8:30 [Moles/vo CRITICAL AM lume] in RESULTS Serum or Plasma RESU LTS CALLED TO: PANDA 12/21/16 0920 David Yoder Sodium 136 - 145 mmoL/L Normal No Dec 21 [Moles/vo informati 2016 8:30 lume] in on in AM Serum or source Plasma data Aspartate 15 - 37 U/L Low No Dec 21 informati 2016 8:30 aminotran on in AM sferase source [Enzymati data c activity/ volume] in Serum or Plasma Alanine 12 - 78 U/L Normal No Dec 21 aminotran informati 2016 8:30 sferase on in AM [Enzymati source c data activity/ volume] in Serum or Plasma Protein 6.4 - 8.2 gm/dL Normal No Dec 21 [Mass/vol informati 2016 8:30 ume] in on in AM Serum or source Plasma data CBC W Auto Differential panel in Blood Observa Value Referen Units Interpr Notes Date tion ce etation Range Basophils 0 - 0.2 K/MM3 Normal No Dec 21 informati 2016 8:30 [#/volume on in AM ] in source Blood by data Automated count Basophils 0.1 - 2.0 % Normal No Dec 21 informati 2016 8:30 leukocyte on in AM s in source Blood by data Automated count Eosinophi 0.0 - 0.4 K/mm3 Normal No Jayjay 14 ls informati 2016 8:30 [#/volume on in AM ] in source Blood by data Automated count Eosinophi 0.1 - % Normal No Dec 14 ls/100 12.0 informati 2016 8:30 leukocyte on in AM s in source Blood by data Automated count Granulocy 1.8 - 7.8 K/mm3 Normal No Dec 14 alejandra informati 2016 8:30 [#/volume on in AM ] in source Blood by data Automated count Granulocy 37.0 - % Normal No Dec 14 alejandra/100 80.0 informati 2016 8:30 leukocyte on in AM s in source Blood by data Automated count Hematocri 37.0 - % Normal No Dec 14 t [Volume 47.0 informati 2016 8:30 on in AM Fraction] source of Blood data Hemoglobi 12.2 - g/dL Normal No Dec 14 n 16.2 informati 2016 8:30 [Mass/vol on in AM ume] in source Blood data Lymphocyt 0.7 - 4.5 K/mm3 Normal No Dec 14 es informati 2016 8:30 [#/volume on in AM ] in source Unspecifi data ed specimen by Automated count Lymphocyt 10 - 50.0 % Normal No Dec 14 es informati 2016 8:30 [#/volume on in AM ] in source Unspecifi data ed specimen by Automated count Erythrocy 27 - 31.2 pg Normal No Dec 14 te mean informati 2016 8:30 corpuscul on in AM ar source hemoglobi data n [Entitic mass] Erythrocy 31.8 - g/dl Normal No Dec 14 te mean 35.4 informati 2016 8:30 corpuscul on in AM ar source hemoglobi data n concentra tion [Mass/vol ume] by Automated count Erythrocy 82.2 - fl Normal No Dec 14 te mean 97.8 informati 2016 8:30 corpuscul on in AM ar volume source [Entitic data volume] by Automated count Monocytes 0.1 - 1.0 K/mm3 Normal No Dec 14 informati 2016 8:30 [#/volume on in AM ] in source Blood by data Automated count Monocytes 1.7 - 9.3 % Normal No Dec 14 /100 informati 2016 8:30 leukocyte on in AM s in source Blood by data Automated count Platelet 7.4 - fl Low No Dec 14 mean 10.4 informati 2017 8:30 volume on in AM [Entitic source volume] data in Blood by Automated count Platelets 142 - 424 K/mm3 Normal No Dec 21 informati 2016 8:30 [#/volume on in AM ] in source Blood data Erythrocy 4.2 - 5.4 M/mm3 Normal No Dec 21 alejandra informati 2016 8:30 [#/volume on in AM ] in source Amniotic data fluid Erythrocy 11.5 - % Normal No Dec 21 te 17.5 informati 2016 8:30 distribut on in AM ion width source [Entitic data volume] by Automated count Leukocyte 4.8 - K/MM3 Normal No Dec 21 s 10.8 informati 2016 8:30 [#/volume on in AM ] in source Blood data Thyrotropin [Units/volume] in Serum or Plasma Observa Value Referen Units Interpr Notes Date tion ce etation Range Thyrotrop 0.358 - uIU/ml Normal No November 30 in 3.740 informati 2016 [Units/vo on in 12:00 PM lume] in source Serum or data Plasma CBC W Auto Differential panel in Blood Observa Value Referen Units Interpr Notes Date tion ce etation Range Basophils 0 - 0.2 K/MM3 Normal No November 28 informati 2016 9:56 [#/volume on in AM ] in source Blood by data Automated count Basophils 0.1 - 2.0 % Normal No November 28 informati 2016 9:56 leukocyte on in AM s in source Blood by data Automated count Eosinophi 0.0 - 0.4 K/mm3 Normal No November 28 ls informati 2016 9:56 [#/volume on in AM ] in source Blood by data Automated count Eosinophi 0.1 - % Normal No November 28 ls/100 12.0 informati 2016 9:56 leukocyte on in AM s in source Blood by data Automated count Granulocy 1.8 - 7.8 K/mm3 Normal No November 28 alejandra informati 2016 9:56 [#/volume on in AM ] in source Blood by data Automated count Granulocy 37.0 - % Normal No November 28 alejandra/100 80.0 informati 2016 9:56 leukocyte on in AM s in source Blood by data Automated count Hematocri 37.0 - % Normal No November 28 t [Volume 47.0 informati 2016 9:56 on in AM Fraction] source of Blood data Hemoglobi 12.2 - g/dL Normal No November 28 n 16.2 informati 2016 9:56 [Mass/vol on in AM ume] in source Blood data Lymphocyt 0.7 - 4.5 K/mm3 Normal No November 28 es informati 2016 9:56 [#/volume on in AM ] in source Unspecifi data ed specimen by Automated count Lymphocyt 10 - 50.0 % Normal No November 28 es informati 2016 9:56 [#/volume on in AM ] in source Unspecifi data ed specimen by Automated count Erythrocy 27 - 31.2 pg Normal No November 28 te mean informati 2016 9:56 corpuscul on in AM ar source hemoglobi data n [Entitic mass] Erythrocy 31.8 - g/dl Normal No November 28 te mean 35.4 informati 2016 9:56 corpuscul on in AM ar source hemoglobi data n concentra tion [Mass/vol ume] by Automated count Erythrocy 82.2 - fl Normal No November 28 te mean 97.8 informati 2016 9:56 corpuscul on in AM ar volume source [Entitic data volume] by Automated count Monocytes 0.1 - 1.0 K/mm3 Normal No November 28 informati 2016 9:56 [#/volume on in AM ] in source Blood by data Automated count Monocytes 1.7 - 9.3 % Normal No November 28 / informati 2017 9:56 leukocyte on in AM s in source Blood by data Automated count Platelet 7.4 - fl Low No November 28 mean 10.4 informati 2016 9:56 volume on in AM [Entitic source volume] data in Blood by Automated count Platelets 142 - 424 K/mm3 Normal No November 28 informati 2016 9:56 [#/volume on in AM ] in source Blood data Erythrocy 4.2 - 5.4 M/mm3 Normal No November 28 alejandra informati 2016 9:56 [#/volume on in AM ] in source Amniotic data fluid Erythrocy 11.5 - % Normal No November 28 te 17.5 informati 2016 9:56 distribut on in AM ion width source [Entitic data volume] by Automated count Leukocyte 4.8 - K/MM3 Normal No November 28 s 10.8 informati 2016 9:56 [#/volume on in AM ] in source Blood data Comprehensive metabolic 2000 panel in Serum or Plasma Observa Value Referen Units Interpr Notes Date tion ce etation Range Albumin/G 1.1 - 1.8 No Low No November 28 lobulin informati informati 2016 9:55 [Mass on in on in AM ratio] in source source Serum or data data Plasma Albumin 3.4 - 5.0 gm/dL Low No November 28 [Mass/vol informati 2016 9:55 ume] in on in AM Serum or source Plasma data Alkaline 46 - 116 U/L Normal No November 28 phosphata informati 2016 9:55 se on in AM [Enzymati source c data activity/ volume] in Serum or Plasma Bilirubin 0.2 - 1.0 mg/dL Normal No November 28 .total informati 2016 9:55 [Mass/vol on in AM ume] in source Serum or data Plasma Urea 7 - 18 mg/dL Normal No November 28 nitrogen informati 2016 9:55 [Mass/vol on in AM ume] in source Serum or data Plasma Calcium 8.5 - mg/dL Low No November 28 [Mass/vol 10.1 informati 2016 9:55 ume] in on in AM Serum or source Plasma data Chloride 98 - 107 mmoL/L Normal No November 28 [Moles/vo informati 2016 9:55 lume] in on in AM Serum or source Plasma data Carbon 21.0 - mmoL/L Normal No November 28 dioxide, 32.0 informati 2016 9:55 total on in AM [Moles/vo source lume] in data Serum or Plasma Creatinin 0.55 - mg/dL Normal No November 28 e 1.02 informati 2016 9:55 [Mass/vol on in AM ume] in source Serum or data Plasma Estimated 59- ML/MIN No REFERENCE November 28 informati RANGE: 2017 9:55 glomerula on in >60 AM r source ML/MIN/1. filtratio data 73 SQUARE n rate METERSIf (GF this patient is -A merican, then multiply theresult by 1.210. Globulin 1.3 - 3.2 gm/dL High No November 28 [Mass/vol informati 2016 9:55 ume] in on in AM Serum source data Glucose 74 - 106 mg/dL High No November 28 [Mass/vol informati 2016 9:55 ume] in on in AM Serum or source Plasma data Potassium 3.5 - 5.1 mmoL/L Normal No November 28 informati 2016 9:55 [Moles/vo on in AM lume] in source Serum or data Plasma Sodium 136 - 145 mmoL/L Normal No November 28 [Moles/vo informati 2016 9:55 lume] in on in AM Serum or source Plasma data Aspartate 15 - 37 U/L Low No November 28 informati 2016 9:55 aminotran on in AM sferase source [Enzymati data c activity/ volume] in Serum or Plasma Alanine 12 - 78 U/L Normal No November 28 aminotran informati 2016 9:55 sferase on in AM [Enzymati source c data activity/ volume] in Serum or Plasma Protein 6.4 - 8.2 gm/dL Normal No November 28 [Mass/vol informati 2016 9:55 ume] in on in AM Serum or source Plasma data Lipid 1996 panel in Serum or Plasma Observa Value Referen Units Interpr Notes Date tion ce etation Range Cholester < 200 mg/dL No No November 28 ol informati informati 2016 9:55 [Moles/vo on in on in AM lume] in source source Unspecifi data data ed specimen Cholester 40 - 60 MG/DL Normal No November 28 ol in HDL informati 2016 9:55 on in AM [Mass/vol source ume] in data Serum or Plasma Cholester 0 - 130 mg/dL Normal No November 28 ol in LDL informati 2016 9:55 on in AM [Mass/vol source ume] in data Serum or Plasma by doc on Triglycer 30 - 200 mg/dL High No November 28 deb informati 2016 9:55 [Moles/vo on in AM lume] in source Serum or data Plasma Cholester 0 - 40 No High No November 28 ol in informati informati 2016 9:55 VLDL on in on in AM [Mass/vol source source ume] in data data Serum or Plasma Hemoglobin A1c in Blood Observa Value Referen Units Interpr Notes Date tion ce etation Range Hemoglo 9.6 0.0 - % High < 6% November 28 bin A1c 7.0 NON-JENI 2017 in [facility] 9:55 AM Blood LEVEL< 7% CONTROL LED DIABETI C LEVEL> 8% POORLY CONTROL LED DIABETI C LEVEL
--- OUTSIDE RECORDS SUMMARY | 2017-02-20 17:58 | External Medical Summary Rpt ---
[...] Date tion ce etation Range COMMENTS TO FEATHEREDGE MACHINE OPERATOR: DRAWN PER RN Albumin/G 1.1 - 1.8 [...] Date tion ce etation Range COMMENTS TO FEATHEREDGE MACHINE OPERATOR: DRAWN PER RN Basophils 0 - 0.2 [...] Date tion ce etation Range COMMENTS TO FEATHEREDGE MACHINE OPERATOR: DRAWN PER RN SPECIMEN COMMENT: PT WAITING [...] A1c 7.0 NON-JENI 2017 in [facility] 9:55 AM Blood LEVEL< 7% CONTROL LED DIABETI C LEVEL> 8% POORLY CONTROL LED DIABETI C LEVEL
--- NOTE | 2017-02-20 18:40 | ACUTE CARE PROGRESS NOTE (QUA) ---
Progress Notes Subjective Date 02/20/17 Time 1839 Note COPD with exacerbation. See H&P. Assessment/Plan This inpt stay is expected to cross 2 MNs from start of care No at 1840
[2017-02-20 18:50] VITALS: BP 138/78
[2017-02-20 19:19] LABS: HEMOGLOBIN 14.6 g/dL (12.2-16.2); LYMPH # 1.9 K/mm3 (0.7-4.5); LYMPH % 18.2 % (10-50.0)
[2017-02-20 19:30] VITALS: BP 167/84
[2017-02-20 22:59] VITALS: BP 167/84
[2017-02-21] VITALS (7 sets, daily range): BP systolic 112–147; BP diastolic 52–73
--- NOTE | 2017-02-21 07:07 | PHARMACY CLINIC NOTE ---
Patient Demographics Patient Demographics Admission date: 02/20/17 Date: 02/21/17 Time: 0706 Allergies Coded Allergies: Penicillins (Intermediate, I-HIVES 11/08/16) Sulfa (Sulfonamide Antibiotics) (Intermediate, I-HIVES 11/08/16) clarithromycin (Intermediate, SWELLING 11/08/16) hydrocodone (Intermediate, I-RASH 11/08/16) doxycycline (11/08/16) guaifenesin (From Mucinex) (11/08/16) sulfacetamide (11/08/16) HEIGHT- FT: 5 IN: 3.00 K.104 VTE General Information Labs: Laboratory Tests 02/20 1905 Hematology Hgb (12.2 - 16.2 g/dL) 14.6 Hct (37.0 - 47.0 %) 43.8 Plt Count (142 - 424 K/mm3) 286 Disclaimer The following section includes nursing documentation that has been pulled in for pharmacy review. Patient's VTE score: 5 Patient's VTE Risk: LOW RISK Clinical trial participant? No VTE prophylaxis NQF [id number] VTE prophylaxis ordered? Yes Type of prophylaxis/treatment: ASHLEY at 0706
--- NOTE | 2017-02-21 07:35 | RADIOLOGY REPORT PS360 ---
CHEST(2 VIEWS-NOT PORTABLE) HISTORY: COPD, shortness of air COPD lung carcinoma, left ORDERING PHYSICIAN: David Cano MD PATIENT AGE: 66 years COMPARISON: 01/01/2017 FINDINGS: The cardiomediastinal silhouette and pulmonary vascularity are within normal limits. Mediport catheter is present via right subclavian approach. Patchy density is present in the left lower lobe consistent with an area of infiltrate. The right lung is clear. No change in the left upper lobe nodule. Degenerative changes thoracic spine IMPRESSION: 1. Left lower lobe infiltrate. 2. No change left upper lobe nodule
--- NOTE | 2017-02-21 08:31 | ACUTE CARE PROGRESS NOTE (QUA) ---
See Addendum Progress Notes Subjective Date 02/21/17 Time 0828 Note Thinks she is better; slept some; still with a cough; SOB with exertion and using O2 prn; eating without problems Objective Findings Laboratory Tests 02/21/17 0607: POC Glucose 352 *H 02/21/17 0415: POC Glucose 296 H 02/20/170: POC Glucose 342 *H 02/20/17 1905: Sodium 136, Potassium 3.3 L, Chloride 97 L, Carbon Dioxide 26, BUN 11, Creatinine 1.1 H, Estimated Creat Clear 60, Estimated GFR (MDRD) 49 L, Glucose 406 H, Calcium 8.4 L, Total Bilirubin 1.4 H, AST 11 L, ALT 17, Alkaline Phosphatase 109, Total Protein 7.9, Albumin 3.5, Globulin 4.4 H, Albumin/ Globulin Ratio 0.8 L, WBC 10.4, RBC 4.72, Hgb 14.6, Hct 43.8, MCV 92.7, RDW 13.3, Plt Count 286, MPV 7.1 L, Gran % 77.0, Gran # 8.0 H, Lymphocytes % 18.2, Monocytes % 3.3, Eosinophils % 1.3, Basophils % 0.3, Lymphocytes # 1.9, Monocytes # 0.3, Eosinophils # 0.1, Basophils # 0.0, PUBS MCHC 33.4, MCH 30.9 Microbiology 02/21 221 SPUTUM: Sputum Culture - RES 02/21 221 SPUTUM: Gram Stain - RES Vital Signs Date Time Temp Pulse Resp B/P Pulse O2 O2 Flow FiO2 Ox Delivery Rate 02/21 0750 98.1 100 20 120/52 92 ROOM AIR 02/21 0549 2 02/21 0549 96 OXYGEN 2 02/21 0431 97.9 82 16 112/53 95 ROOM AIR 02/20 2344 2 02/20 2344 95 OXYGEN 2 02/20 2259 98.6 103 20 167/84 02/20 2227 103 02/20 2227 92 ROOM AIR 02/20 2053 20 02/20 1930 98.6 94 18 167/84 95 ROOM AIR 02/20 1850 97.8 103 20 138/78 92 ROOM AIR 02/20 1800 2 02/20 1800 92 ROOM AIR 2 02/20 1800 92 ROOM AIR Current Medications Levofloxacin/Dextrose 150 ML QHS IV Irbesartan 300 MG DAILY PO Insulin Human [rDNA origin] 20 UNITS AC SC Metformin HCl 850 MG BIDD PO Albuterol/Ipratropium 3 ML Q6H6 INH Insulin Human [rDNA origin] 10 UNITS ONCE ONE SC (DC) Carvedilol 6.25 MG BID PO Diagnostic Test (Pha) 1 EACH W/MEALS&HS FS Doxazosin Mesylate 1 MG QHS PO Fluticasone/Salmeterol 1 PUFFS BID IN Gabapentin 200 MG BID PO Insulin Glargine 40 UNITS BID SC Lorazepam 0.5 MG TID PO Methylprednisolone Sodium Succinate 80 MG Q8 IV Potassium Chloride 20 MEQ BID PO Nicotine 21 MG DAILYP PRN TD Sodium Chloride 1,000 ML .[id number] IV Furosemide 40 MG BIDL PO Levofloxacin/Dextrose 150 ML DAILY IV (DC) 02/20 1500 02/20 2300 02/21 0700 Intake Total Output Total Balance Patient 172 lb Weight Last VS-Temp:98.1 B/P:120/52 Pulse:100 Resp:20 SaO2:92 ROOM AIR Last weight lbs:172 oz:3 K.104 Method:Bed Scales CXR 02/20/17 MPRESSION: 1. Left lower lobe infiltrate. 2. No change left upper lobe nodule Exam General appearance: alert, no acute distress Cardiovascular: regular rate & rhythm Respiratory: soft expiratory wheeze throughout ABD: non-distended, soft, no tenderness, bowel sounds present Extremities: no peripheral edema, no calf tenderness Neuro: alert, oriented, speech clear Assessment/Plan Problem List 1. Pneumonia Status: Acute 2. COPD (chronic obstructive pulmonary disease) Status: Chronic 3. Lung mass 4. Hyperglycemia due to type 2 diabetes mellitus Patient condition Stable Plan: continue current care, increase KCL This inpt stay is expected to cross 2 MNs from start of care Yes at 0835 at 0947
[2017-02-21] MEDS ORDERED: POTASSIUM CHLO20 ME2 PO (11:38)
[2017-02-21] MEDS ORDERED: NITROFURANTOIN100 M4 PO (11:40)
[2017-02-21] MEDS ORDERED: CITALOPRAM HYDR20 MG PO (11:40)
[2017-02-21] MEDS ORDERED: BENZONATATE100 M1 PO (11:41)
[2017-02-22 03:39] VITALS: BP 124/67
[2017-02-22 08:08] VITALS: BP 92/59
--- NOTE | 2017-02-22 08:34 | ACUTE CARE PROGRESS NOTE (QUA) ---
Progress Notes Subjective Date 02/22/17 Time 0828 Note Patient is feeling better. Some cough with minimal sputum production. Eating without problems; voiding QS; has been up in the room Objective Findings Laboratory Tests 02/22/17 0650: POC Glucose 351 *H 02/22/17 0630: Sodium 135 L, Potassium 3.3 L, Chloride 98, Carbon Dioxide 28, BUN 23 H, Creatinine 1.4 H, Estimated Creat Clear 47 L, Estimated GFR (MDRD) 37 L, Glucose 361 H, Calcium 8.2 L 02/21/17 2111: POC Glucose 388 *H 02/21/17 1701: POC Glucose 429 *H 02/21/17 1123: POC Glucose 455 *H Vital Signs Date Time Temp Pulse Resp B/P Pulse O2 O2 Flow FiO2 Ox Delivery Rate 02/22 0808 97.5 84 16 92/59 98 OXYGEN 2 02/22 0742 20 02/22 0554 2 02/22 0554 98 OXYGEN 2 02/22 0341 91 ROOM AIR 02/22 0339 97.7 90 20 124/67 96 OXYGEN 2 02/21 2154 20 02/21 2115 97.8 89 20 126/60 96 02/21 2029 97.8 89 20 126/60 96 OXYGEN 2 02/21 1751 2 02/21 1751 95 OXYGEN 2 02/21 1557 98.0 102 20 147/71 95 OXYGEN 02/21 1228 20 02/21 0907 98.1 100 20 120/52 92 02/21 0859 20 Current Medications Methylprednisolone Sodium Succinate 40 MG Q8 IV Patient Own Medication 1 UNIT DAILY PO Sodium Chloride 10 ML PRN PRN IV Lorazepam 0 .STK-MED ONE .ROUTE (DC) Lorazepam 0 .STK-MED ONE .ROUTE (DC) Insulin Glargine 50 UNITS BID SC Levofloxacin/Dextrose 150 ML QHS IV Patient Own Medication 1 UNIT QHS PO Patient Own Medication 1 UNIT BIDL PO Patient Own Medication 1 UNIT TID PO Lorazepam 0 .STK-MED ONE .ROUTE (DC) Albuterol/Ipratropium 0 .STK-MED ONE INH (DC) Irbesartan 300 MG DAILY PO (DC) Potassium Chloride 20 MEQ TID PO (DC) Lorazepam 0 .STK-MED ONE .ROUTE (DC) Insulin Human [rDNA origin] 20 UNITS AC SC Metformin HCl 850 MG BIDD PO Albuterol/Ipratropium 3 ML Q6H6 INH Carvedilol 6.25 MG BID PO Diagnostic Test (Pha) 1 EACH W/MEALS&HS FS Doxazosin Mesylate 1 MG QHS PO (DC) Fluticasone/Salmeterol 1 PUFFS BID IN Gabapentin 200 MG BID PO Insulin Glargine 40 UNITS BID SC (DC) Lorazepam 0.5 MG TID PO Methylprednisolone Sodium Succinate 80 MG Q8 IV (DC) Nicotine 21 MG DAILYP PRN TD Sodium Chloride 1,000 ML .[id number] IV (DC) Furosemide 40 MG BIDL PO (DC) 02/21 1500 /15 2300 02/22 0700 Intake Total 960 Output Total Balance 960 Intake, Oral 960 Last VS-Temp:97.5 B/P:92/59 Pulse:84 Resp:16 SaO2:98 OXYGEN Last weight lbs:177 oz:7 K.484 Method:Bed Scales Exam General appearance: alert, no acute distress Cardiovascular: regular rate & rhythm Respiratory: no wheezing; CTAB A&P ABD: non-distended, soft, no tenderness Extremities: no peripheral edema, no calf tenderness Neuro: alert, oriented, speech clear Assessment/Plan Problem List 1. Pneumonia Status: Acute 2. COPD (chronic obstructive pulmonary disease) Status: Chronic 3. Lung mass 4. Hyperglycemia due to type 2 diabetes mellitus Patient condition Improving Plan: continue current care This inpt stay is expected to cross 2 MNs from start of care Yes at 0834
[2017-02-22 09:12] VITALS: BP 92/59
--- NOTE | 2017-02-22 11:51 | SURGEON PROGRESS NOTE ---
Subjective data Subjective data: no new complaints Objective data Vitals,I&O,and Labs: Vital signs, intake and output,and available lab data for the last 24 hours is as noted below. Vital Signs Date Time Temp Pulse Resp B/P Pulse O2 O2 Flow FiO2 Ox Delivery Rate 02/22 0912 97.5 84 16 92/59 98 02/22 0808 97.5 84 16 92/59 98 OXYGEN 2 02/22 0742 20 02/22 0554 2 02/22 0554 98 OXYGEN 2 02/22 0341 91 ROOM AIR 02/22 0339 97.7 90 20 124/67 96 OXYGEN 2 02/21 2154 20 02/21 2115 97.8 89 20 126/60 96 02/21 2029 97.8 89 20 126/60 96 OXYGEN 2 02/21 1751 2 02/21 1751 95 OXYGEN 2 02/21 1557 98.0 102 20 147/71 95 OXYGEN 02/21 1228 20 / 1500 02/21 2300 02/22 0700 Intake Total 960 Output Total Balance 960 Intake, Oral 960 Laboratory Tests Test Result Date Time Chemistry Sodium (mmoL/L) 135 02/22 0630 Potassium (mmoL/L) 3.3 02/22 0630 Chloride (mmoL/L) 98 02/22 0630 Carbon Dioxide (mmoL/L) 28 02/22 0630 BUN (mg/dL) 23 02/22 0630 Creatinine (mg/dL) 1.4 02/22 0630 Estimated Creat Clear (ML/MIN) 47 02/22 0630 Estimated GFR (MDRD) (ML/MIN) 37 02/22 0630 Glucose (mg/dL) 361 02/22 0630 POC Glucose (mg/dl) 309 02/22 1122 Calcium (mg/dL) 8.2 02/22 06 Total Bilirubin (mg/dL) 1.4 02/20 1905 AST (U/L) 11 02/20 1905 ALT (U/L) 17 02/20 1905 Alkaline Phosphatase (U/L) 109 02/20 1905 Total Protein (gm/dL) 7.9 02/20 1905 Albumin (gm/dL) 3.5 02/20 1905 Globulin (gm/dL) 4.4 02/20 1905 Albumin/Globulin Ratio 0.8 02/20 1905 Hematology WBC (K/MM3) 10.4 02/20 1905 RBC (M/mm3) 4.72 02/20 1905 Hgb (g/dL) 14.6 02/20 1905 Hct (%) 43.8 02/20 1905 MCV (fl) 92.7 02/20 1905 RDW (%) 13.3 02/20 1905 Plt Count (K/mm3) 286 02/20 1905 MPV (fl) 7.1 02/20 1905 Gran % (%) 77.0 02/20 1905 Gran # (K/mm3) 8.0 02/20 1905 Lymphocytes % (%) 18.2 02/20 1905 Monocytes % (%) 3.3 02/20 1905 Eosinophils % (%) 1.3 02/20 1905 Basophils % (%) 0.3 02/20 1905 Lymphocytes # (K/mm3) 1.9 02/20 1905 Monocytes # (K/mm3) 0.3 02/20 1905 Eosinophils # (K/mm3) 0.1 02/20 1905 Basophils # (K/MM3) 0.0 02/20 1905 PUBS MCHC (g/dl) 33.4 02/20 1905 Immunology MCH (pg) 30.9 02/20 1905 Assessment findings Assessment Exam General appearance: no acute distress ABD: soft Patient plan Diagnoses: GERD - initially scheduled for outpatient EGD tomorrow Abdominal pain Pneumonia COPD Plan: NPO p MN, EGD tomorrow as planned at 1151
[2017-02-22 16:07] VITALS: BP 108/48
[2017-02-22 19:45] VITALS: BP 124/60
[2017-02-22 20:28] VITALS: BP 124/60
[2017-02-23] VITALS (16 sets, daily range): BP systolic 115–141; BP diastolic 56–81
--- NOTE | 2017-02-23 09:06 | ACUTE CARE PROGRESS NOTE (QUA) ---
See Addendum Progress Notes Subjective Date 02/23/17 Time 0720 Note Pt is sitting up at the bedside reading a magazine. She denies pain and reports she is feeling much better, feels that her SOBOE has improved, still with productive cough. She is currently NPO for EGD this am. Objective Findings Last VS-Temp:97.6 B/P:127/62 Pulse:79 Resp:20 SaO2:96 OXYGEN Last weight lbs:174 oz:4 K.038 Method:Bed Scales Exam General appearance: alert, awake, no acute distress Cardiovascular: regular rate & rhythm, normal peripheral pulses Respiratory: diminished throughout ABD: non-distended, no rebound, soft, no tenderness, no guarding, no organomegaly, no palpable mass, bowel sounds present Extremities: moves all, no peripheral edema Neuro: alert, oriented, speech clear, no focal deficit Reviewed: medications, vital signs, lab results, radiology report, consult note, nursing notes Assessment/Plan Problem List 1. Pneumonia Status: Acute 2. COPD (chronic obstructive pulmonary disease) Status: Chronic 3. Lung mass 4. Hyperglycemia due to type 2 diabetes mellitus Patient condition Stable Plan: EGD per surgery. This inpt stay is expected to cross 2 MNs from start of care Yes at 0906 at 1208
--- NOTE | 2017-02-23 10:00 | Operative Note ---
Surgeon/Diagnoses Surgeon/Paediatric Thoracic Physician(s) Date of procedure: 02/23/17 Surgeon: MD Ajit Ceballos Diagnoses Pre-op diagnosis: Gastroesophageal reflux Abdominal pain Post-op diagnosis Same as preoperative diagnoses, with the addition of the following: Moderate gastritis Polypoid small shallow antral ulcer Procedure Procedure Procedure: Esophagogastroduodenoscopy with biopsy Indications: NICOL MICHAELS is a 66 year-old Female with a history of gastroesophageal reflux pain vague abdominal pain. Findings: Gastroesophageal junction at 39 cm Moderate gastritis Small polypoid shallow antral ulcer Procedure Description: After informed consent was obtained, the patient was taken to the endoscopy suite. Monitored anesthesia care ensued after she was transferred to the LEFT lateral decubitus position. The gastroscope was advanced. The gastroesophageal junction was at 39 cm. The stomach was entered. Moderate gastritis noted. Retroflexion revealed some retained food particles and moderate inflammation. A small shallow polypoid antral ulcer was noted and multiple biopsies were obtained. The pylorus was intubated. The duodenal mucosa appeared relatively normal. The gastroscope was carefully removed and the patient was transferred to recovery. EBL (ml): 1 Anesthesia: Monitored anesthesia care Complications: No immediate Specimens: Small shallow polypoid antral ulcer biopsies Disposition Disposition: Stable to recovery from where she will be transferred back to the floor. at 0690
[2017-02-23 13:36] LABS: HEMOGLOBIN 13.9 g/dL (12.2-16.2); LYMPH % 6.8 % (10-50.0)
[2017-02-23 14:12] LABS: NEUTROPHILS 81 % (42-76)
[2017-02-24] VITALS (7 sets, daily range): BP systolic 108–139; BP diastolic 57–78
--- NOTE | 2017-02-24 06:40 | SURGEON PROGRESS NOTE ---
Subjective data Subjective data: She states that she "feels fine". Objective data Vitals,I&O,and Labs: Vital signs, intake and output,and available lab data for the last 24 hours is as noted below. Vital Signs Date Time Temp Pulse Resp B/P Pulse O2 O2 Flow FiO2 Ox Delivery Rate 02/24 0610 2 02/24 0610 96 2 02/24 0608 2 02/24 0508 2 02/24 0348 2 02/24 0348 97.6 73 16 108/60 97 ROOM AIR 02/24 0300 2 02/24 0144 2 02/24 0054 2 02/23 2331 98.2 78 16 119/56 96 ROOM AIR 02/23 2257 2 02/23 2138 2 02/23 2110 2 02/23 2040 20 02/23 2039 88 ROOM AIR 02/23 1959 2 02/23 1959 98.4 84 20 122/60 96 ROOM AIR 02/23 1925 98.4 84 20 122/60 96 2 02/23 1843 2 02/23 1727 2 02/23 1705 2 02/23 1705 94 OXYGEN 2 02/23 1551 98.0 79 20 115/62 94 ROOM AIR 02/23 1500 2 02/23 1430 98.0 85 16 125/59 96 2 02/23 1330 97.9 86 16 125/61 95 2 02/23 1300 2 02/23 1231 79 16 130/80 / 1230 97.9 85 16 117/62 94 2 / 1228 16 02/23 1200 98.0 89 16 130/70 96 2 02/23 1130 2 02/23 1130 97.9 81 16 118/60 94 2 02/23 1130 93 OXYGEN 2 02/23 1115 97.8 78 16 134/74 97 2 02/23 1100 2 02/23 1100 97.8 82 16 141/64 97 2 02/23 1045 98.0 76 16 120/81 95 2 02/23 1030 97.9 72 16 129/67 94 2 / 1030 97.9 72 16 129/67 94 2 / 1011 79 16 130/80 93 ROOM AIR / 0956 85 16 124/50 93 ROOM AIR 02/23 0943 93 / 0914 20 02/23 0900 2 02/23 0900 97.6 79 16 130/80 93 2 02/23 0738 97.6 79 20 127/62 96 OXYGEN 02/23 0710 2 02/23 1500 02/23 2300 02/24 0700 Intake Total 960 Output Total Balance 960 Intake, Oral 960 Patient 79.039 kg 79.067 kg Weight Laboratory Tests Test Result Date Time Chemistry Sodium (mmoL/L) 138 02/23 1315 Potassium (mmoL/L) 3.8 02/23 131 Chloride (mmoL/L) 98 02/23 1315 Carbon Dioxide (mmoL/L) 30 02/23 1315 BUN (mg/dL) 35 02/23 131 Creatinine (mg/dL) 1.4 02/23 131 Estimated Creat Clear (ML/MIN) 48 02/23 131 Estimated GFR (MDRD) (ML/MIN) 37 02/23 131 Glucose (mg/dL) 322 02/23 1315 POC Glucose (mg/dl) 262 02/23 2020 Calcium (mg/dL) 8.4 02/23 1315 Total Bilirubin (mg/dL) 1.4 02/20 190 AST (U/L) 11 02/20 190 ALT (U/L) 17 02/20 190 Alkaline Phosphatase (U/L) 109 02/20 190 Total Protein (gm/dL) 7.9 02/20 1905 Albumin (gm/dL) 3.5 02/20 190 Globulin (gm/dL) 4.4 02/20 1905 Albumin/Globulin Ratio 0.8 02/20 1905 Hematology WBC (K/MM3) 14.9 02/23 1315 RBC (M/mm3) 4.49 02/23 1315 Hgb (g/dL) 13.9 02/23 1315 Hct (%) 41.0 02/23 1315 MCV (fl) 91.2 02/23 131 RDW (%) 13.4 02/23 1315 Plt Count (K/mm3) 333 02/23 1315 MPV (fl) 7.5 02/23 1315 Gran % (%) 89.3 02/23 131 Gran # (K/mm3) 13.3 02/23 131 Total Counted (#CELLS) 100 02/23 1315 Lymphocytes % (%) 6.8 02/23 1315 Monocytes % (%) 3.4 02/23 1315 Eosinophils % (%) 0.5 02/23 131 Basophils % (%) 0.1 02/23 131 Neutrophils (%) 81 02/23 131 Lymphocytes (Manual) (%) 13 02/23 1315 Lymphocytes # (K/mm3) 1.0 02/23 131 Monocytes (Manual) (%) 4 02/23 1315 Monocytes # (K/mm3) 0.5 02/23 1315 Eosinophils # (K/mm3) 0.1 02/23 131 Basophils # (K/MM3) 0.0 02/23 131 Atypical Lymphocytes (%) 2 02/23 1315 Platelet Estimate NORMAL 02/23 1315 PUBS MCHC (g/dl) 34.0 02/23 1315 Immunology MCH (pg) 31.0 02/23 1315 Assessment findings Assessment Exam General appearance: no acute distress Cardiovascular: regular rate & rhythm Respiratory: no respiratory distress ABD: soft Patient plan Diagnoses: Antral and pyloric channel ulcer Gastritis Plan: continue PPI and Carafate, outpatient follow-up in one week at 0640
--- NOTE | 2017-02-24 08:33 | ACUTE CARE PROGRESS NOTE (QUA) ---
See Addendum Progress Notes Subjective Date 02/24/17 Time 0730 Note Pt sitting up on side of bed eating breakfast, tolerating without pain or nausea. She denies SOB at rest and states only minimal with exertion, still with productive cough. She rested well overnight. Objective Findings Last VS-Temp:97.6 B/P: 108/60 Pulse:73 Resp:16 SaO2:96 ROOM AIR Last weight lbs: 174 oz: 5 K.067 Method: Bed Scales 02/23/17 EGD: 1. Moderate gastritis noted. 2. A small shallow polypoid antral ulcer was noted. Exam General appearance: alert, awake, no acute distress Cardiovascular: regular rate & rhythm, normal peripheral pulses Respiratory: diminished throughout with expiratory wheezes ABD: non-distended, no rebound, soft, no tenderness, no guarding, no organomegaly, no palpable mass, bowel sounds present Extremities: moves all, no peripheral edema, warm, no calf tenderness Neuro: alert, oriented, speech clear, no focal deficit Reviewed: medications, vital signs, lab results, radiology report, consult note, nursing notes Assessment/Plan Problem List 1. Pneumonia Status: Acute 2. COPD (chronic obstructive pulmonary disease) Status: Chronic 3. Lung mass 4. Hyperglycemia due to type 2 diabetes mellitus Patient condition Stable Plan: WBC now elevated with sputum cultures positive for MRSA resistant to Levofloxacin. EGD note reviewed. Further per Dr. Cano. This inpt stay is expected to cross 2 MNs from start of care Yes at 0833 at 0915
[2017-02-25] VITALS (7 sets, daily range): BP systolic 97–143; BP diastolic 52–83
[2017-02-25 08:44] LABS: HEMOGLOBIN 14.5 g/dL (12.2-16.2); LYMPH # 0.9 K/mm3 (0.7-4.5); LYMPH % 5.9 % (10-50.0)
--- NOTE | 2017-02-25 09:01 | SURGEON PROGRESS NOTE ---
See Addendum Subjective data Subjective data: Feels "pretty okay right now". She continues to pass flatus. Objective data Vitals,I&O,and Labs: Vital signs, intake and output,and available lab data for the last 24 hours is as noted below. Vital Signs Date Time Temp Pulse Resp B/P Pulse O2 O2 Flow FiO2 Ox Delivery Rate 02/25 0838 2 02/25 0838 97.8 83 16 143/66 94 2 02/25 0753 2 02/25 0753 97.8 83 16 143/66 94 ROOM AIR 02/25 0633 2 02/25 0633 94 2 02/25 0628 2 02/25 0605 2 02/25 0508 2 02/25 0427 2 02/25 0427 98.4 82 18 114/69 94 ROOM AIR 02/25 0256 2 02/25 0200 2 02/25 0053 2 02/25 0017 2 02/25 0017 97.7 83 16 132/83 94 ROOM AIR 02/24 2303 2 02/24 2210 2 02/24 2115 16 02/24 2110 2 02/24 2024 2 02/24 2024 97.5 89 20 126/59 95 ROOM AIR 02/24 2005 97.5 89 16 126/59 95 2 02/24 1854 2 02/24 1709 2 02/24 1630 97.7 83 20 139/78 97 ROOM AIR 02/24 1451 2 02/24 1335 18 02/24 1330 2 02/24 1230 97.9 82 18 119/67 98 ROOM AIR 02/24 1055 2 02/24 0923 18 02/24 0913 2 02/24 0913 97.4 99 20 120/57 97 2 02/24 1500 02/24 2300 02/25 0700 Intake Total 720 240 200 Output Total Balance 720 240 200 Intake, IV 200 Intake, Oral 720 240 Patient 79.038 kg Weight Laboratory Tests Test Result Date Time Chemistry Sodium (mmoL/L) 139 02/25 0837 Potassium (mmoL/L) 4.1 02/25 0837 Chloride (mmoL/L) 96 02/25 0837 Carbon Dioxide (mmoL/L) 31 02/25 0837 BUN (mg/dL) 38 02/25 0837 Creatinine (mg/dL) 1.3 02/25 0837 Estimated Creat Clear (ML/MIN) 52 02/25 0837 Estimated GFR (MDRD) (ML/MIN) 41 02/25 0837 Glucose (mg/dL) 239 02/25 0837 POC Glucose (mg/dl) 248 02/25 0606 Calcium (mg/dL) 8.2 02/25 837 Total Bilirubin (mg/dL) 1.4 02/20 1905 AST (U/L) 11 02/20 1905 ALT (U/L) 17 02/20 1905 Alkaline Phosphatase (U/L) 109 081904 Total Protein (gm/dL) 7.9 02/20 1905 Albumin (gm/dL) 3.5 02/20 1905 Globulin (gm/dL) 4.4 02/20 1905 Albumin/Globulin Ratio 0.8 02/20 1905 Hematology WBC (K/MM3) 14.9 02/23 131 RBC (M/mm3) 4.49 02/23 1315 Hgb (g/dL) 13.9 02/23 1315 Hct (%) 41.0 02/23 1315 MCV (fl) 91.2 02/23 1315 RDW (%) 13.4 02/23 1315 Plt Count (K/mm3) 333 02/23 1315 MPV (fl) 7.5 02/23 1315 Gran % (%) 89.3 02/23 1315 Gran # (K/mm3) 13.3 02/23 1315 Total Counted (#CELLS) 100 02/23 1315 Lymphocytes % (%) 6.8 02/23 1315 Monocytes % (%) 3.4 02/23 1315 Eosinophils % (%) 0.5 02/23 1315 Basophils % (%) 0.1 02/23 131 Neutrophils (%) 81 02/23 1315 Lymphocytes (Manual) (%) 13 02/23 131 Lymphocytes # (K/mm3) 1.0 02/23 1315 Monocytes (Manual) (%) 4 02/23 1315 Monocytes # (K/mm3) 0.5 02/23 1315 Eosinophils # (K/mm3) 0.1 02/23 1315 Basophils # (K/MM3) 0.0 02/23 1315 Atypical Lymphocytes (%) 2 02/23 1315 Platelet Estimate NORMAL 02/23 1315 PUBS MCHC (g/dl) 34.0 02/23 1315 Immunology MCH (pg) 31.0 02/23 1315 Additional data: Review of the patient's small bowel follow-through from yesterday reveals inflammation of the proximal jejunum with changes consistent with possible aphthous ulcers. Assessment findings Assessment Exam General appearance: no acute distress Cardiovascular: regular rate & rhythm Respiratory: no respiratory distress ABD: soft Patient plan Diagnoses: Enteritis - undetermined etiology. Possible viral or bacterial. Possible Crohn's ; however, location of disease process and age of onset make this seemingly less likely. Sigmoid colitis / possible diverticulitis - although primary diverticulitis is certainly a possibility, the likelihood of sigmoid inflammation secondary to enteritis (location effect) now seems to be more likely. Plan: Advance diet, Ambulate, Antibiotics Additional data: Even if primary diverticulitis is not the etiology of the patient's disease process, continued treatment as if she did have diverticulitis is warranted secondary to the fairly significant inflammatory changes of the sigmoid colon. Gastroenterology consultation warranted secondary to fairly significant nature of focal enteritis. at 0901
--- NOTE | 2017-02-25 09:05 | SURGEON PROGRESS NOTE ---
Subjective data Subjective data: The patient states that she is "doing fine". Objective data Vitals,I&O,and Labs: Vital signs, intake and output,and available lab data for the last 24 hours is as noted below. Vital Signs Date Time Temp Pulse Resp B/P Pulse O2 O2 Flow FiO2 Ox Delivery Rate 02/25 0838 2 02/25 0838 97.8 83 16 143/66 94 2 02/25 0753 2 02/25 0753 97.8 83 16 143/66 94 ROOM AIR 02/25 0633 2 02/25 0633 94 2 02/25 0628 2 02/25 0605 2 02/25 0508 2 02/25 0427 2 02/25 0427 98.4 82 18 114/69 94 ROOM AIR 02/25 0256 2 02/25 0200 2 02/25 0053 2 02/25 0017 2 02/25 0017 97.7 83 16 132/83 94 ROOM AIR 02/24 2303 2 02/24 2210 2 02/24 2115 16 02/24 2110 2 02/24 2024 2 02/24 2024 97.5 89 20 126/59 95 ROOM AIR 02/24 2005 97.5 89 16 126/59 95 2 02/24 1854 2 02/24 1709 2 02/24 1630 97.7 83 20 139/78 97 ROOM AIR 02/24 1451 2 02/24 1335 18 02/24 1330 2 02/24 1230 97.9 82 18 119/67 98 ROOM AIR 02/24 1055 2 02/24 0923 18 02/24 0913 2 02/24 0913 97.4 99 20 120/57 97 2 02/24 1500 02/24 2300 02/25 0700 Intake Total 720 240 200 Output Total Balance 720 240 200 Intake, IV 200 Intake, Oral 720 240 Patient 79.038 kg Weight Laboratory Tests Test Result Date Time Chemistry Sodium (mmoL/L) 139 02/25 0837 Potassium (mmoL/L) 4.1 02/25 0837 Chloride (mmoL/L) 96 02/25 0837 Carbon Dioxide (mmoL/L) 31 02/25 0837 BUN (mg/dL) 38 02/25 0837 Creatinine (mg/dL) 1.3 02/25 0837 Estimated Creat Clear (ML/MIN) 52 02/25 0837 Estimated GFR (MDRD) (ML/MIN) 41 02/25 0837 Glucose (mg/dL) 239 02/25 0837 POC Glucose (mg/dl) 248 02/25 0606 Calcium (mg/dL) 8.2 02/25 837 Total Bilirubin (mg/dL) 1.4 02/20 1905 AST (U/L) 11 02/20 1905 ALT (U/L) 17 02/20 1905 Alkaline Phosphatase (U/L) 109 02/20 1905 Total Protein (gm/dL) 7.9 02/20 1905 Albumin (gm/dL) 3.5 02/20 1905 Globulin (gm/dL) 4.4 02/20 1905 Albumin/Globulin Ratio 0.8 02/20 1905 Hematology WBC (K/MM3) 14.9 02/23 1315 RBC (M/mm3) 4.49 02/23 1315 Hgb (g/dL) 13.9 02/23 1315 Hct (%) 41.0 02/23 1315 MCV (fl) 91.2 02/23 1315 RDW (%) 13.4 02/23 1315 Plt Count (K/mm3) 333 02/23 1315 MPV (fl) 7.5 02/23 1315 Gran % (%) 89.3 02/23 1315 Gran # (K/mm3) 13.3 02/23 1315 Total Counted (#CELLS) 100 02/23 1315 Lymphocytes % (%) 6.8 02/23 1315 Monocytes % (%) 3.4 02/23 1315 Eosinophils % (%) 0.5 02/23 1315 Basophils % (%) 0.1 02/23 1315 Neutrophils (%) 81 02/23 1315 Lymphocytes (Manual) (%) 13 02/23 1315 Lymphocytes # (K/mm3) 1.0 02/23 1315 Monocytes (Manual) (%) 4 02/23 1315 Monocytes # (K/mm3) 0.5 02/23 1315 Eosinophils # (K/mm3) 0.1 02/23 1315 Basophils # (K/MM3) 0.0 02/23 1315 Atypical Lymphocytes (%) 2 02/23 1315 Platelet Estimate NORMAL 02/23 1315 PUBS MCHC (g/dl) 34.0 02/23 1315 Immunology MCH (pg) 31.0 08/17 1315 Assessment findings Assessment Exam General appearance: no acute distress Respiratory: no respiratory distress ABD: soft Patient plan Diagnoses: Gastric antral/pyloric channel ulcers Gastritis Plan: continue current medical management Additional data: The patient will follow-up approximately one week after discharge for reevaluation and for follow-up of pathology status post EGD. at 0905
[2017-02-25 12:58] LABS: NEUTROPHILS 89 % (42-76)
--- NOTE | 2017-02-25 13:12 | ACUTE CARE PROGRESS NOTE (QUA) ---
Progress Notes Subjective Date 02/25/17 Time 0900 Note She seems stable. C/O itching of the feet and hands, with irritation. This has occurred since the endoscopy. Objective Findings Last VS-Temp:97.6 B/P:123/52 Pulse:83 Resp:18 SaO2:96 OXYGEN Last weight lbs:174 oz:4 K.038 Method:Bed Scales Exam General appearance: alert Eyes: anicteric, conjunctiva clear ENT: mucous membranes moist Cardiovascular: regular rate & rhythm Respiratory: aerating well, diminished breath sounds ABD: soft, no tenderness Extremities: no peripheral edema, dermatitis of the feet, dorsa, right more than left. Irritative, some excoriation. Some milder irritation of the hands, fingers. Assessment/Plan Problem List 1. Pneumonia Status: Acute 2. COPD (chronic obstructive pulmonary disease) Status: Chronic 3. Lung mass 4. Hyperglycemia due to type 2 diabetes mellitus Patient condition Stable from pulmonary status. Dermatitis could relate to a medication or to secondary effects from the infection. Plan: continue current care (increase steroid) This inpt stay is expected to cross 2 MNs from start of care Yes at 1311
[2017-02-26] VITALS (8 sets, daily range): BP systolic 113–125; BP diastolic 54–81
--- NOTE | 2017-02-26 10:34 | SURGEON PROGRESS NOTE ---
Subjective data Subjective data: Feels "OK" this AM. Some itching persists. Objective data Vitals,I&O,and Labs: Vital signs, intake and output,and available lab data for the last 24 hours is as noted below. Vital Signs Date Time Temp Pulse Resp B/P Pulse O2 O2 Flow FiO2 Ox Delivery Rate 02/26 0955 2 02/26 0903 20 02/26 0749 2 02/26 0749 97.8 86 20 125/67 96 OXYGEN 2 02/26 0631 2 02/26 0615 96 OXYGEN 2 02/26 0603 2 02/26 0528 2 02/26 0406 2 02/26 0406 97.5 82 18 113/59 96 OXYGEN 2 02/26 0342 2 02/26 0310 92 ROOM AIR 02/26 0219 2 02/26 0145 2 02/26 0021 2 02/26 0021 97.7 88 18 125/80 96 OXYGEN 2 02/25 2348 2 02/25 2223 2 02/25 2110 2 02/25 2107 20 02/25 2025 2 02/25 202 98.2 90 20 122/70 96 OXYGEN 2 02/25 1905 2 02/25 1905 98.2 90 20 122/70 95 2 02/25 1856 2 02/25 1834 2 02/25 1802 2 02/25 1725 2 02/25 1540 2 02/25 1540 98.1 92 20 124/55 95 OXYGEN 2 02/25 1530 2 02/25 1353 2 02/25 1333 18 02/25 1300 2 02/25 1147 2 02/25 1147 97.6 83 18 123/52 96 OXYGEN 2 02/25 1039 2 02/25 1500 02/25 2300 02/26 0700 Intake Total 960 600 Output Total Balance 960 600 Intake, Oral 960 600 Output, Stool Laboratory Tests Test Result Date Time Chemistry Sodium (mmoL/L) 139 02/25 0837 Potassium (mmoL/L) 4.1 02/25 0837 Chloride (mmoL/L) 96 02/25 0837 Carbon Dioxide (mmoL/L) 31 02/25 0837 BUN (mg/dL) 38 02/25 0837 Creatinine (mg/dL) 1.3 02/25 0837 Estimated Creat Clear (ML/MIN) 52 02/25 0837 Estimated GFR (MDRD) (ML/MIN) 41 02/25 837 Glucose (mg/dL) 239 02/25 837 POC Glucose (mg/dl) 202 02/26 619 Calcium (mg/dL) 8.2 02/25 837 Total Bilirubin (mg/dL) 1.4 02/20 1905 AST (U/L) 11 02/20 1905 ALT (U/L) 17 02/20 1905 Alkaline Phosphatase (U/L) 109 02/20 1905 Total Protein (gm/dL) 7.9 02/20 1905 Albumin (gm/dL) 3.5 02/20 1905 Globulin (gm/dL) 4.4 02/20 1905 Albumin/Globulin Ratio 0.8 02/20 1905 Hematology WBC (K/MM3) 15.1 02/25 837 RBC (M/mm3) 4.66 02/25 837 Hgb (g/dL) 14.5 02/25 837 Hct (%) 42.8 02/25 837 MCV (fl) 91.8 02/25 837 RDW (%) 13.0 02/25 837 Plt Count (K/mm3) 291 02/25 837 MPV (fl) 7.5 02/25 837 Gran % (%) 89.7 02/25 837 Gran # (K/mm3) 13.6 02/25 837 Total Counted (#CELLS) 100 02/25 837 Lymphocytes % (%) 5.9 02/25 837 Monocytes % (%) 3.6 02/25 837 Eosinophils % (%) 0.6 02/25 837 Basophils % (%) 0.1 02/25 837 Neutrophils (%) 89 02/25 837 Band Neutrophils (%) 1 02/25 837 Lymphocytes (Manual) (%) 6 02/25 837 Lymphocytes # (K/mm3) 0.9 02/25 837 Monocytes (Manual) (%) 3 02/25 837 Monocytes # (K/mm3) 0.6 02/25 837 Eosinophils # (K/mm3) 0.1 02/25 837 Basophils # (K/MM3) 0.0 02/25 837 Atypical Lymphocytes (%) 1 02/25 837 Platelet Estimate NORMAL 02/25 837 PUBS MCHC (g/dl) 33.9 02/25 837 Immunology MCH (pg) 31.1 02/25 0837 Assessment findings Assessment Exam General appearance: no acute distress Cardiovascular: regular rate & rhythm Respiratory: no respiratory distress ABD: soft Patient plan Diagnoses: Antral and pyloric channel ulcers-on Carafate and proton pump inhibitor Plan: continue medical management, outpatient follow-up as scheduled at 1034
[2017-02-26 10:40] LABS: HEMOGLOBIN 14.1 g/dL (12.2-16.2); LYMPH # 0.9 K/mm3 (0.7-4.5); LYMPH % 5.8 % (10-50.0)
[2017-02-26 11:00] LABS: NEUTROPHILS 92 % (42-76)
--- NOTE | 2017-02-26 13:48 | ACUTE CARE PROGRESS NOTE (QUA) ---
Progress Notes Subjective Date 02/26/17 Time 1344 Note She feels better. Breathing is OK, less itching, she states, since Doxepin Rx'd yesterday. Objective Findings Last VS-Temp:97.6 B/P:114/60 Pulse:85 Resp:18 SaO2:94 OXYGEN Last weight lbs:174 oz:4 K.038 Method:Bed Scales Exam General appearance: alert, no acute distress Eyes: conjunctiva clear ENT: mucous membranes moist Cardiovascular: regular rate & rhythm Respiratory: no respiratory distress, diminished breath sounds ABD: soft, no tenderness Genitourinary: incontinent of urine Extremities: no peripheral edema Musculoskeletal: motor intact Skin: dry, intact Neuro: alert, no deficit Reviewed: medications, vital signs, lab results Assessment/Plan Problem List 1. Pneumonia Status: Acute 2. COPD (chronic obstructive pulmonary disease) Status: Chronic 3. Lung mass 4. Hyperglycemia due to type 2 diabetes mellitus Patient condition Improving Plan: Perhaps discharge in AM. Will need continued MRSA treatment. This inpt stay is expected to cross 2 MNs from start of care Yes at 1348
[2017-02-27 00:30] VITALS: BP 154/78
[2017-02-27 04:00] VITALS: BP 106/67
--- NOTE | 2017-02-27 07:48 | SURGEON PROGRESS NOTE ---
Subjective data Subjective data: She states that she had "some nausea overnight". She states that she "feels a bit better now". She also states that she had a "tiny amount of blood" with her last bowel movement...she attributes this to "hemorrhoid trouble". Objective data Vitals,I&O,and Labs: Vital signs, intake and output,and available lab data for the last 24 hours is as noted below. Vital Signs Date Time Temp Pulse Resp B/P Pulse O2 O2 Flow FiO2 Ox Delivery Rate 02/27 0638 2 02/27 0630 2 02/27 0600 2 02/27 0600 97 ROOM AIR 02/27 0457 2 02/27 0400 97.6 90 16 106/67 92 OXYGEN 2 02/27 0318 90 ROOM AIR 02/27 0250 2 02/27 0230 2 02/27 0100 2 02/27 0030 2 02/27 0030 97.6 96 16 154/78 92 OXYGEN 2 02/26 2308 2 02/26 2222 16 02/26 2005 2 02/26 2005 97.9 100 16 123/54 93 OXYGEN 2 02/27 2000 97.9 100 16 123/54 93 2 02/26 1904 2 02/26 1853 2 02/26 1748 2 02/26 1705 2 02/26 1532 2 02/26 1532 98.1 93 20 120/81 96 OXYGEN 2 02/26 1500 2 02/26 1400 2 02/26 1300 2 02/26 1254 18 02/26 1142 2 02/26 1142 97.6 85 22 114/60 94 OXYGEN 2 02/26 1100 2 02/26 0955 2 02/26 0920 97.8 86 20 125/67 96 2 02/26 0903 20 02/26 0900 2 02/26 0749 2 02/26 0749 97.8 86 20 125/67 96 OXYGEN 2 02/26 1500 02/26 2300 02/27 0700 Intake Total 1080 904 200 Output Total Balance 1080 904 200 Intake, IV 424 200 Intake, Oral 1080 480 Output, Stool Patient 78.613 kg Weight Laboratory Tests Test Result Date Time Chemistry Sodium (mmoL/L) 138 02/26 1020 Potassium (mmoL/L) 4.1 02/26 1020 Chloride (mmoL/L) 98 02/26 1020 Carbon Dioxide (mmoL/L) 31 02/26 1020 BUN (mg/dL) 43 08 1020 Creatinine (mg/dL) 1.3 08 1020 Estimated Creat Clear (ML/MIN) 52 08 1020 Estimated GFR (MDRD) (ML/MIN) 41 08 1020 Glucose (mg/dL) 197 08 1020 POC Glucose (mg/dl) 134 08/ 0625 Calcium (mg/dL) 8.3 02/26 1020 Total Bilirubin (mg/dL) 1.4 02/20 1905 AST (U/L) 11 02/20 1905 ALT (U/L) 17 08 190 Alkaline Phosphatase (U/L) 109 08 1905 Total Protein (gm/dL) 7.9 02/20 190 Albumin (gm/dL) 3.5 02/20 190 Globulin (gm/dL) 4.4 02/20 1905 Albumin/Globulin Ratio 0.8 02/20 190 Hematology WBC (K/MM3) 15.6 02/26 1020 RBC (M/mm3) 4.58 02/26 1020 Hgb (g/dL) 14.1 02/26 1020 Hct (%) 42.3 02/26 1020 MCV (fl) 92.4 02/26 1020 RDW (%) 12.8 08 1020 Plt Count (K/mm3) 292 08 1020 MPV (fl) 7.4 02/26 1020 Gran % (%) 90.6 / 1020 Gran # (K/mm3) 14.2 02/26 1020 Total Counted (#CELLS) 100 08/ 1020 Lymphocytes % (%) 5.8 08 1020 Monocytes % (%) 3.0 08/ 1020 Eosinophils % (%) 0.4 08/ 1020 Basophils % (%) 0.2 08/ 1020 Neutrophils (%) 92 08/ 1020 Band Neutrophils (%) 1 02/25 0837 Lymphocytes (Manual) (%) 5 08/ 1020 Lymphocytes # (K/mm3) 0.9 08/ 1020 Monocytes (Manual) (%) 1 08/ 1020 Monocytes # (K/mm3) 0.5 08/ 1020 Eosinophils # (K/mm3) 0.1 08/ 1020 Basophils # (K/MM3) 0.0 02/26 1020 Atypical Lymphocytes (%) 2 02/26 1020 Platelet Estimate NORMAL 02/26 1020 PUBS MCHC (g/dl) 33.2 02/26 1020 Immunology MCH (pg) 30.7 02/26 1020 Assessment findings Assessment Exam General appearance: no acute distress Cardiovascular: regular rate & rhythm Respiratory: no respiratory distress ABD: soft Patient plan Diagnoses: Antral/Pyloric channel ulcers Plan: continue PPI and Carafate, f/u path from EGD at 0747
--- NOTE | 2017-02-27 08:24 | ACUTE CARE PROGRESS NOTE (QUA) ---
Progress Notes Subjective Date 02/27/17 Time 0823 Assessment/Plan Problem List 1. Pneumonia Status: Acute 2. COPD (chronic obstructive pulmonary disease) Status: Chronic 3. Lung mass 4. Hyperglycemia due to type 2 diabetes mellitus This inpt stay is expected to cross 2 MNs from start of care Yes Antibiotic Stewardship (2) Current Culture Results Microbiology 02/21 221 SPUTUM: Sputum Culture - COMP STAPHYLOCOCCUS AUREUS 02/21 221 SPUTUM: Gram Stain - COMP Infxn that will respond? Yes (MRSA PNA) Right drug,dose,and route? Yes (CLINDAMYCIN) More targeted antbx? No at 0823
[2017-02-27 08:30] VITALS: BP 123/69
--- NOTE | 2017-02-27 09:07 | ACUTE CARE PROGRESS NOTE (QUA) ---
Progress Notes Subjective Date 02/27/17 Time 0845 Note Has had some nausea and vomited a small amount; was able to eat some breakfast; nausea is better now; bowels are moving; [employer] cough; denies SOB ; not wearing O2; denies CP; ambulating without problems Objective Findings Laboratory Tests 02/27/17 0625: POC Glucose 134 H 02/26/17 2129: POC Glucose 141 H 02/26/17 1654: POC Glucose 113 H 02/26/17 1135: POC Glucose 130 H 02/26/17 1020: Sodium 138, Potassium 4.1, Chloride 98, Carbon Dioxide 31, BUN 43 H, Creatinine 1.3 H, Estimated Creat Clear 52, Estimated GFR (MDRD) 41 L, Glucose 197 H, Calcium 8.3 L, WBC 15.6 H, RBC 4.58, Hgb 14.1, Hct 42.3, MCV 92.4, RDW 12.8, Plt Count 292, MPV 7.4, Gran % 90.6 H, Gran # 14.2 H, Total Counted 100, Lymphocytes % 5.8 L, Monocytes % 3.0, Eosinophils % 0.4, Basophils % 0.2, Neutrophils 92 H, Lymphocytes (Manual) 5 L, Lymphocytes # 0.9, Monocytes ( Manual) 1 L, Monocytes # 0.5, Eosinophils # 0.1, Basophils # 0.0, Atypical Lymphocytes 2, Platelet Estimate NORMAL, PUBS MCHC 33.2, MCH 30.7 Vital Signs Date Time Temp Pulse Resp B/P Pulse O2 O2 Flow FiO2 Ox Delivery Rate 02/27 0638 2 02/27 0630 2 02/27 0600 2 02/27 0600 97 ROOM AIR 02/27 0457 2 02/27 0400 97.6 90 16 106/67 92 OXYGEN 2 02/27 0318 90 ROOM AIR 02/27 0250 2 02/27 0230 2 02/27 0100 2 02/27 0030 2 02/27 0030 97.6 96 16 154/78 92 OXYGEN 2 02/26 2308 2 02/26 2222 16 02/26 2005 2 02/26 2005 97.9 100 16 123/54 93 OXYGEN 2 02/27 2000 97.9 100 16 123/54 93 2 02/26 1904 2 02/26 1853 2 02/26 1748 2 02/26 1705 2 02/26 1532 2 02/26 1532 98.1 93 20 120/81 96 OXYGEN 2 02/26 1500 2 02/26 1400 2 02/26 1300 2 02/26 1254 18 02/26 1142 2 02/26 1142 97.6 85 22 114/60 94 OXYGEN 2 02/26 1100 2 02/26 0955 2 02/26 0920 97.8 86 20 125/67 96 2 Current Medications Insulin Human [rDNA origin] 0 .STK-MED ONE SC (DC) Lorazepam 0 .STK-MED ONE .ROUTE (DC) Promethazine HCl 12.5 MG ONCE ONE IV (DC) Sodium Chloride 25 ML ONCE ONE IV (DC) Al Hydroxide/Mg Hydroxide 30 ML ONCE ONE PO (DC) Al Hydroxide/Mg Hydroxide 0 .STK-MED ONE .ROUTE (DC) Al Hydroxide/Mg Hydroxide 30 ML ONCE ONE PO (DC) Lactobacillus 1 CAP AC PO Lorazepam 0 .STK-MED ONE .ROUTE (DC) Albuterol/Ipratropium 0 .STK-MED ONE INH (DC) Insulin Human [rDNA origin] 0 .STK-MED ONE SC (DC) Doxepin HCl 25 MG BID PO Methylprednisolone Sodium Succinate 60 MG Q8 IV Clindamycin Phosphate 600 MG Q6H IV Sodium Chloride 100 ML Insulin Glargine 55 UNITS BID SC Sucralfate 1 GM ACHS PO Pantoprazole Sodium 40 MG BID IV Sodium Chloride 10 ML PRN PRN IV Patient Own Medication 1 UNIT DAILY PO Sodium Chloride 10 ML PRN PRN IV Patient Own Medication 1 UNIT QHS PO Patient Own Medication 1 UNIT BIDL PO Patient Own Medication 1 UNIT TID PO Insulin Human [rDNA origin] 20 UNITS AC SC Metformin HCl 850 MG BIDD PO (r) Albuterol/Ipratropium 3 ML Q6H6 INH Carvedilol 6.25 MG BID PO Diagnostic Test (Pha) 1 EACH W/MEALS&HS FS Fluticasone/Salmeterol 1 PUFFS BID IN Gabapentin 200 MG BID PO Lorazepam 0.5 MG TID PO Nicotine 21 MG DAILYP PRN TD 02/26 1500 02/26 2300 02/27 0700 Intake Total 1080 904 200 Output Total Balance 1080 904 200 Intake, IV 424 200 Intake, Oral 1080 480 Output, Stool Patient 173 lb Weight Last VS-Temp:97.6 B/P:106/67 Pulse:90 Resp:16 SaO2:97 OXYGEN Last weight lbs:173 oz:5 K.613 Method:Bed Scales Exam General appearance: alert, no acute distress, sitting on side of bed Cardiovascular: regular rate & rhythm Respiratory: clear to auscultation (bilat anterior and posterior), diminished breath sounds (RLL) ABD: non-distended, bowel sounds present, tenderness (epigastric) Assessment/Plan Problem List 1. Pneumonia Status: Acute 2. COPD (chronic obstructive pulmonary disease) Status: Chronic 3. Lung mass 4. Hyperglycemia due to type 2 diabetes mellitus Patient condition Improved Plan: continue current care, possibly home today This inpt stay is expected to cross 2 MNs from start of care No Antibiotic Stewardship (2) Infxn that will respond? Yes (MRSA PNA) Right drug,dose,and route? Yes (CLINDAMYCIN) More targeted antbx? No at [id number]
[2017-02-27] MEDS ORDERED: CARAFATE1 GM/10 ML PO (09:42)
[2017-02-27] MEDS ORDERED: CLINDAMYCIN HC300 MG PO (09:43)
[2017-02-27] MEDS ORDERED: DOXEPIN10 MG PO (09:44)
[2017-02-27] MEDS ORDERED: INSULIN GL100 UNITS1 SC (09:47)
[2017-02-27 09:57] VITALS: BP 123/69
[2017-02-27 11:02] VITALS: BP 123/69
--- NOTE | 2017-03-05 08:20 | DISCHARGE SUMMARY STANDARD ---
Discharge Summary (FCA2) Date of admission: 02/20/17 Date of discharge: 02/27/17 Problem List: 1. Pneumonia 2. COPD (chronic obstructive pulmonary disease) 3. Lung mass 4. Hyperglycemia due to type 2 diabetes mellitus 5. Staphylococcal pneumonia 6. Squamous cell carcinoma of lung 7. Acute ulcer of pyloric antrum 8. Asthmatic bronchitis , chronic 9. GERD (gastroesophageal reflux disease) 10. Gastritis History of present illness: Ms. Bhat is a 67 year old female with a history of asthmatic bronchitis, Type 2 DM, HTN, and squamous cell carcinoma of the lung who presented to the office of [facility] 02/20/17 with complaints of a productive cough, low grade fever, and SOB with wheezing at rest. She also described feeling lightheaded as if she would pass out. She denied CP. With evaluation in the office CBC revealed an elevated WBC. She was then admitted for further evaluation and treatment. Exam on admission: In the office of [facility] Vital signs: Temp-99.3; BP 144/88; HR 98; O2 sat 91% on RA General: NAD HEENT: oral cavity without lesions and with normal and moist mucosa Neck: Supple, no LAD Chest: Normal shape and expansion Heart: RRR Lungs: decreased BS Neuro: Intact; normal gait Skin: no rash Extremities: trace of leg edema CBC with WBC of 12.6, 84.4% Gran and 12.1 Lymph Hospital Course: On admission patient was started on Levaquin, steroids, and duonebs. She was placed on sliding scale insulin and Lantus as well as her home meds. The ABX was changed to Clindamycin due to MRSA + sputum resistant to Levaquin. The cough and SOB gradually improved. She wore her oxygen as needed. EGD which was planned prior to hospitalization was done on 02/23/[address] Cantu. Patient was found to have a gastritis and polypoid, antral ulcer. She was started on a PPI and Carafate. She developed total body itching and was started on Doxepin after which the itching did improve. After the EGD she had some nausea and did vomit once. 02/27/17 she ate breakfast without problems. She was not SOB. Bowels were moving. She was discharged to home. Laboratory data this visit: 02/21/17 0607: POC Glucose 352 *H 02/21/17 0415: POC Glucose 296 H 02/20/170: POC Glucose 342 *H 02/20/17 1905: Sodium 136, Potassium 3.3 L, Chloride 97 L, Carbon Dioxide 26, BUN 11, Creatinine 1.1 H, Estimated Creat Clear 60, Estimated GFR (MDRD) 49 L, Glucose 406 H, Calcium 8.4 L, Total Bilirubin 1.4 H, AST 11 L, ALT 17, Alkaline Phosphatase 109, Total Protein 7.9, Albumin 3.5, Globulin 4.4 H, Albumin/ Globulin Ratio 0.8 L, WBC 10.4, RBC 4.72, Hgb 14.6, Hct 43.8, MCV 92.7, RDW 13.3, Plt Count 286, MPV 7.1 L, Gran % 77.0, Gran # 8.0 H, Lymphocytes % 18.2, Monocytes % 3.3, Eosinophils % 1.3, Basophils % 0.3, Lymphocytes # 1.9, Monocytes # 0.3, Eosinophils # 0.1, Basophils # 0.0, PUBS MCHC 33.4, MCH 30.9 02/22/17 0650: POC Glucose 351 *H 02/22/17 0630: Sodium 135 L, Potassium 3.3 L, Chloride 98, Carbon Dioxide 28, BUN 23 H, Creatinine 1.4 H, Estimated Creat Clear 47 L, Estimated GFR (MDRD) 37 L, Glucose 361 H, Calcium 8.2 L 02/21/17 2111: POC Glucose 388 *H 02/21/17 1701: POC Glucose 429 *H 02/21/17 1123: POC Glucose 455 *H Test Result Date Time Chemistry Sodium (mmoL/L) 138 02/23 1315 Potassium (mmoL/L) 3.8 02/23 1315 Chloride (mmoL/L) 98 02/23 1315 Carbon Dioxide (mmoL/L) 30 02/23 1315 BUN (mg/dL) 35 02/23 1315 Creatinine (mg/dL) 1.4 02/23 1315 Estimated Creat Clear (ML/MIN) 48 02/23 131 Estimated GFR (MDRD) (ML/MIN) 37 02/23 1315 Glucose (mg/dL) 322 02/23 131 POC Glucose (mg/dl) 262 02/24 2020 Calcium (mg/dL) 8.4 02/23 1315 Total Bilirubin (mg/dL) 1.4 02/20 1905 AST (U/L) 11 02/20 1905 ALT (U/L) 17 02/20 1905 Alkaline Phosphatase (U/L) 109 02/20 1905 Total Protein (gm/dL) 7.9 02/20 1905 Albumin (gm/dL) 3.5 02/20 1905 Globulin (gm/dL) 4.4 02/20 1905 Albumin/Globulin Ratio 0.8 02/20 1905 Hematology WBC (K/MM3) 14.9 02/23 131 RBC (M/mm3) 4.49 02/23 1315 Hgb (g/dL) 13.9 02/23 1315 Hct (%) 41.0 02/23 1315 MCV (fl) 91.2 02/23 1315 RDW (%) 13.4 02/23 1315 Plt Count (K/mm3) 333 02/23 1315 MPV (fl) 7.5 02/23 1315 Gran % (%) 89.3 02/23 1315 Gran # (K/mm3) 13.3 02/23 1315 Total Counted (#CELLS) 100 02/23 1315 Lymphocytes % (%) 6.8 02/23 1315 Monocytes % (%) 3.4 02/23 1315 Eosinophils % (%) 0.5 02/23 1315 Basophils % (%) 0.1 02/23 1315 Neutrophils (%) 81 02/23 1315 Lymphocytes (Manual) (%) 13 02/23 1315 Lymphocytes # (K/mm3) 1.0 02/23 1315 Monocytes (Manual) (%) 4 02/23 1315 Monocytes # (K/mm3) 0.5 02/23 1315 Eosinophils # (K/mm3) 0.1 02/23 1315 Basophils # (K/MM3) 0.0 02/23 1315 Atypical Lymphocytes (%) 2 02/23 1315 Platelet Estimate NORMAL 02/23 1315 PUBS MCHC (g/dl) 34.0 02/23 1315 Immunology MCH (pg) 31.0 02/23 131502/27/17 0625: POC Glucose 134 H 02/26/17 2129: POC Glucose 141 H 02/26/17 1654: POC Glucose 113 H 02/26/17 1135: POC Glucose 130 H 02/26/17 1020: Sodium 138, Potassium 4.1, Chloride 98, Carbon Dioxide 31, BUN 43 H, Creatinine 1.3 H, Estimated Creat Clear 52, Estimated GFR (MDRD) 41 L, Glucose 197 H, Calcium 8.3 L, WBC 15.6 H, RBC 4.58, Hgb 14.1, Hct 42.3, MCV 92.4, RDW 12.8, Plt Count 292, MPV 7.4, Gran % 90.6 H, Gran # 14.2 H, Total Counted 100, Lymphocytes % 5.8 L, Monocytes % 3.0, Eosinophils % 0.4, Basophils % 0.2, Neutrophils 92 H, Lymphocytes (Manual) 5 L, Lymphocytes # 0.9, Monocytes ( Manual) 1 L, Monocytes # 0.5, Eosinophils # 0.1, Basophils # 0.0, Atypical Lymphocytes 2, Platelet Estimate NORMAL, PUBS MCHC 33.2, MC > SPUTUM CULTURE Final 02/24/17-0642 Organism 1 STAPHYLOCOCCUS AUREUS 1. STAPHYLOCOCCUS AUREUS RX AB M.I.C ROUTE COST I ------ -- --------- ----- ------ TRIMETH/SULFAMETH (BACTRIM) S <=10 CLINDAMYCIN S <=0.25 ERYTHROMYCIN S <=0.25 GENTAMICIN S <=0.5 LEVOFLOXACIN R 4 NITROFURANTOIN (MACRODANTIN) S <=16 OXACILLIN R >=4 BENZYLPENICILLIN R >=0.5 RIFAMPIN S <=0.5 TETRACYCLINE S <=1 VANCOMYCIN S 1 THIS IS METHICILLIN RESISTANT STAPH AUR Imagin02/20/17 CXR IMPRESSION: 1. Left lower lobe infiltrate. 2. No change left upper lobe nodule Discharge medications: Stop taking the following medications: INSULIN GLARGINE,HUM.REC.ANLOG (Lis Canela) 300 UNIT/1 ML INSULN.PEN Subcutaneous Injection AT BEDTIME NIGHTLY Continue taking these medications: Valsartan (Diovan 320MG) 320 MG TABLET 320 MILLIGRAM ORAL DAILY Doxazosin Mesylate (Doxazosin) 1 MG TABLET 1 MILLIGRAM ORAL AT BEDTIME NIGHTLY Insulin Aspart, Recombinant (Novolog Flexpen) 100 UNIT/ML VIAL 25 UNITS Subcutaneous Injection BEFORE MEALS Lorazepam (Ativan 0.5MG) 0.5 MG TABLET 0.5 MILLIGRAM ORAL THREE TIMES A DAY Loratadine (Claritin 10MG) 10 MG TABLET 10 MILLIGRAM ORAL DAILY Famotidine (Famotidine 20MG) 20 MG TABLET 20 MILLIGRAM ORAL DAILY Furosemide (Lasix 40MG) 40 MG TABLET 40 MILLIGRAM ORAL DAILY Metoprolol Succinate (Metoprolol Succinate) 25 MG TAB.ER.24H 25 MILLIGRAM ORAL AT BEDTIME NIGHTLY Qty = 30 Gabapentin (Gabapentin 100MG) 100 MG CAPSULE 200 MILLIGRAM ORAL AT BEDTIME NIGHTLY Gabapentin (Gabapentin 100MG) 100 MG CAPSULE 100 MILLIGRAM ORAL DAILY Carvedilol (Carvedilol 6.25MG) 6.25 MG TABLET 6.25 MILLIGRAM ORAL EVERY MORNING Metformin HCl (Metformin) 500 MG TABLET 500 MILLIGRAM ORAL TWICE A DAY Qty = 360 Prednisone (Prednisone 10MG) 10 MG TABLET 10 MILLIGRAM ORAL DAILY POTASSIUM CHL (Potassium Chloride) 20 MEQ TAB.ER.PRT 20 Milliequivalent ORAL TWICE A DAY Citalopram Hydrobromide (Citalopram HBr) 20 MG TABLET 20 MILLIGRAM ORAL DAILY Qty = 90 NITROFURANTOIN MONOHYD/M-CRYST (Nitrofurantoin [place]-Mcr 100 MG) 100 MG CAPSULE 100 MILLIGRAM ORAL TWICE A DAY Qty = 14 Benzonatate (Benzonatate) 100 MG CAPSULE 100 MILLIGRAM ORAL THREE TIMES A DAY Qty = 20 Start taking the following new medications: Insulin Glargine, Recombinan (Insulin Glargine 3ML) 100 UNIT/1 ML INSULN.PEN 55 UNITS Subcutaneous Injection TWICE A DAY Qty = 3 Refills = 4 Sucralfate (Carafate Oral Susp) 1 GM/10 ML ORAL.SUSP 1 GRAM ORAL BEFORE MEALS AND AT BEDTIME Qty = 1 Refills = 4 Clindamycin Hcl (Clindamycin 300MG) 300 MG CAPSULE 300 MILLIGRAM ORAL FOUR TIMES A DAY Qty = 40 No Refills Doxepin Hcl (Doxepin) 10 MG CAPSULE 10 MILLIGRAM ORAL THREE TIMES A DAY Qty = 90 Refills = 1 Disposition: Discharged to home in stable and satisfactory condition. Meds as per reconciliation sheet. Activity was to be limited. To continue with same diet. Followup with Dr. Cano in 3 days. at 0820
== END 2017-02-27 11:05 | disposition home or self-care (01) | DRG 194 ==
LOC: 2ND 17:53
PROVIDERS: Family Medicine; Surgery
PROC: 0DB68ZX Excision of Stomach, Via Natural or Artificial Opening Endoscopic, Diagnostic (ICD-10-PCS; principal; 2017-02-23 11:00)
DX: J18.9 Pneumonia, unspecified organism (principal); C34.90 Malignant neoplasm of unspecified part of unspecified bronchus or lung; E11.65 Type 2 diabetes mellitus with hyperglycemia; I10 Essential (primary) hypertension; J42 Unspecified chronic bronchitis

== ENCOUNTER → 2017-03-14 | Outpatient (CLI) | payer MEDICARE ==
[~2017-03-14] MED LIST changes: +ASPIRIN 81MG TA81 MG PO; +BENZONATATE100 M1 PO; +BETADINE30 ML OP; +BISMATROL262 MG PO; +CARAFATE1 GM/10 ML PO; +CITALOPRAM HYDR20 MG PO; +CLARITHROMYCIN500 MG PO; +CLINDAMYCIN HC300 MG PO; +CYANOCOBAL1000 MCG/M PO; +DICYCLOMINE HYD20 MG PO; +DOXEPIN10 MG PO; +ETODOLAC400 MG PO; +FLAGYL 500MG.500 MG PO; +IPRATROPIUM BROM3 M1 IH; +LANSOPRAZOLE30 MG PO; +MYRBETRIQ25 MG PO; +NITROFURANTOIN100 M4 PO; +OMEPRAZOLE40 MG PO; +POTASSIUM CHLO20 ME2 PO; +SILVADENE CR 2020 GM TP; +TRIAMCINOLON 0.15 GM TP
--- NOTE | 2017-03-14 17:16 | RADIOLOGY REPORT PS360 ---
[id number] (INDEX)-3 VIEWS CLINICAL INDICATION: Pain PARONYCHIA OF FINGER OF LEFT HAND ORDERING PHYSICIAN: David Cano MD PATIENT AGE: 67 years COMPARISON: None FINDINGS: Minimal osteoarthritic changes are present at the PIP and DIP of the second digit. No fracture or dislocation. No destructive change evident. Bandage artifact is present with some resultant lucency along the soft tissues of the distal phalanx medially. IMPRESSION: Mild osteoarthritic change, no acute destructive process. No radiopaque foreign body
== END ==
LOC: RAD 16:09
DX: L03.012 Cellulitis of left finger (principal)

== ENCOUNTER 2017-03-15 09:50 | Outpatient (CLI) | payer MEDICARE ==
[~2017-03-15] VITALS: Ht 160 cm; Wt 81.6 kg
[~2017-03-15 09:50] MED LIST changes: -ASPIRIN 81MG TA81 MG PO; -BETADINE30 ML OP; -BISMATROL262 MG PO; -CLARITHROMYCIN500 MG PO; -CYANOCOBAL1000 MCG/M PO; -DICYCLOMINE HYD20 MG PO; -ETODOLAC400 MG PO; -FLAGYL 500MG.500 MG PO; -IPRATROPIUM BROM3 M1 IH; -LANSOPRAZOLE30 MG PO; -MYRBETRIQ25 MG PO; -OMEPRAZOLE40 MG PO; -SILVADENE CR 2020 GM TP; -TRIAMCINOLON 0.15 GM TP
[2017-03-15 10:20] LABS: HEMOGLOBIN 13.7 g/dL (12.2-16.2); LYMPH # 1.5 K/mm3 (0.7-4.5); LYMPH % 22.1 % (10-50.0)
[2017-03-15] MEDS ORDERED: FLAGYL 500MG.500 MG PO (10:35)
[2017-03-15] MEDS ORDERED: CLARITHROMYCIN500 MG PO (10:36)
[2017-03-15] MEDS ORDERED: LANSOPRAZOLE30 MG PO (10:38)
[2017-03-15] MEDS ORDERED: BETADINE30 ML OP (10:39)
[2017-03-15] MEDS ORDERED: SILVADENE CR 2020 GM TP (10:44)
[2017-03-15] MEDS ORDERED: IPRATROPIUM BROM3 M1 IH (10:46)
[2017-03-15 10:52] VITALS: BP 143/73
[2017-03-15] MEDS ORDERED: ADVAIR DISK28 PUFFS IN (11:03)
[2017-03-15] MEDS ORDERED: OMEPRAZOLE40 MG PO (11:04)
[2017-03-15] MEDS ORDERED: BISMATROL262 MG PO (11:05)
[2017-03-15 11:07] VITALS: BP 138/71
[2017-03-15] MEDS ORDERED: TRIAMCINOLON 0.15 GM TP (11:09)
[2017-03-15] MEDS ORDERED: ETODOLAC400 MG PO (11:09)
[2017-03-15] MEDS ORDERED: CYANOCOBAL1000 MCG/M PO (11:10)
[2017-03-15] MEDS ORDERED: ASPIRIN 81MG TA81 MG PO (11:12)
[2017-03-15] MEDS ORDERED: TUDORZA PR400 MCG/Ac IH (11:13)
[2017-03-15] MEDS ORDERED: DICYCLOMINE HYD20 MG PO (11:18)
[2017-03-15 11:22] VITALS: BP 140/69
[2017-03-15] MEDS ORDERED: ONGLYZA5 MG PO (11:23)
[2017-03-15] MEDS ORDERED: MYRBETRIQ25 MG PO (11:30)
[2017-03-15] MEDS ORDERED: TOUJEO300 U/ML SC (11:33)
[2017-03-15 11:45] VITALS: BP 138/74
== END 2017-03-15 11:55 | disposition hospice, home (50) ==
LOC: COP 09:50
PROVIDERS: Internal Medicine
DX: C34.12 Malignant neoplasm of upper lobe, left bronchus or lung (principal)
CPT/HCPCS: J1642; J9271

== ENCOUNTER → 2017-03-24 | Day surgery (SDC) | payer MEDICARE ==
[~2017-03-24] MED LIST changes: +ASPIRIN 81MG TA81 MG PO; +BETADINE30 ML OP; +BISMATROL262 MG PO; +CLARITHROMYCIN500 MG PO; +CYANOCOBAL1000 MCG/M PO; +DICYCLOMINE HYD20 MG PO; +ETODOLAC400 MG PO; +FLAGYL 500MG.500 MG PO; +IPRATROPIUM BROM3 M1 IH; +LANSOPRAZOLE30 MG PO; +MYRBETRIQ25 MG PO; +OMEPRAZOLE40 MG PO; +SILVADENE CR 2020 GM TP; +TRIAMCINOLON 0.15 GM TP
--- NOTE | 2017-03-24 14:29 | Operative Note ---
Surgeon/Diagnoses Surgeon/Lithographic Etcher(s) Date of procedure: 03/24/17 Surgeon: MD Ajit Ceballos Diagnoses Pre-op diagnosis: LEFT index finger paronychia Post-op diagnosis Same Procedure Procedure Procedure: Incision and drainage of LEFT index finger paronychia Indications: NICOL MICHAELS is a 67 year-old Female with a history of LEFT index fair paronychia status post bedside incision and drainage and antibiotic therapy. She continues to have intermittent. Drainage and inflammatory response. Findings: Small amount of "old blood" within pocket. No purulent fluid encountered. Procedure Description: After informed consent was obtained, the patient was taken to the procedure room. Her LEFT hand was prepped and draped in a sterile fashion. Digital block was accomplished for the LEFT index finger utilizing 1 percent lidocaine. An incision just proximal to the nailbed was made as this was the site overlying the most "fluctuant" point. A small amount of "old blood" was evacuated. No purulent fluid was noted. An incision along the lateral distal finger (just lateral to the nail plate) was made. Another small pocket of "old blood" was encountered. Again, no purulent fluid was noted. Pressure dressings were applied. The patient was transferred to recovery in stable condition. EBL (ml): 5 Anesthesia: Digital block with 1 percent lidocaine (8 ml) Complications: No immediate Specimens: none Disposition Disposition: Stable to recovery from where she will be discharged home. She will follow-up in one week. at [id number]
[2017-03-24 17:19] VITALS: BP 159/79
== END ==
LOC: SDC 11:14
PROVIDERS: Surgery
PROC: 0H9GXZZ Drainage of Left Hand Skin, External Approach (ICD-10-PCS; principal; 2017-03-24 13:00)
DX: L03.012 Cellulitis of left finger (principal); E11.9 Type 2 diabetes mellitus without complications

== ENCOUNTER → 2017-03-31 | Outpatient (CLI) | payer MEDICARE ==
[2017-03-31 08:55] LABS: HEMOGLOBIN 14.5 g/dL (12.2-16.2); LYMPH # 1.8 K/mm3 (0.7-4.5); LYMPH % 27.7 % (10-50.0)
[2017-03-31 09:11] LABS: BUN 11 mg/dL (7-18)
[2017-03-31 09:13] LABS: GFR (ESTIMATED) 71 ML/MIN (59-)
--- NOTE | 2017-03-31 14:23 | RADIOLOGY REPORT PS360 ---
CT ABD PELVIS W/ CONTRAST CLINICAL INDICATION: Follow-up lung cancer, evaluate for metastasis LUNG CA ORDERING PHYSICIAN: Hero Ross MD PATIENT AGE: 67 years COMPARISON: [id number] TECHNIQUE: Axial images obtained with sagittal and coronal reformats. PROCEDURE: Oral Contrast: Redicat IV Contrast: 75 mL of Isovue-370. FINDINGS: There is patchy density in the right lung base medially nonspecific. Mild thickening is noted involving the pericardium anteriorly measuring up to 13 mm. There is a 11 mm isodensity involving the lateral segment left hepatic lobe unchanged. Decreased attenuation is present along the falciform ligament region probably due to fatty infiltration. No new hepatic abnormalities evident. There has been a prior cholecystectomy. Common bile duct is slightly prominent but unchanged. The spleen is unremarkable. There is mild nodularity of the adrenal gland on the left is stable. The pancreas is unremarkable. No renal mass, calculi, or hydronephrosis a 13 mm isodense is present along the upper pole the left kidney consistent with an exophytic cyst unchanged. No evidence of appendicitis, diverticulitis, intestinal obstruction, or free air. No pelvic mass or abnormal fluid collection. No evidence of adenopathy. There is a small umbilical hernia containing fat. Mild degenerative changes lumbar spine. No lytic or blastic change is apparent. There is some sclerosis of the right femoral head of cortical region. Developing avascular necrosis is considered. MRI may be of further value. IMPRESSION: 1. Overall stable CT appearance of the abdomen and pelvis with no convincing evidence of metastatic disease. 2. Possible developing avascular necrosis of the right femoral head which may be better evaluated with MRI. 3. Mild thickening of the pericardium suggesting small pericardial effusion
== END ==
LOC: RAD 08:40
PROVIDERS: Internal Medicine
DX: C34.90 Malignant neoplasm of unspecified part of unspecified bronchus or lung (principal); Z03.89 Encounter for observation for other suspected diseases and conditions ruled out
CPT/HCPCS: Q9967

== ENCOUNTER → 2017-04-22 | Outpatient (CLI) | payer MEDICARE ==
[2017-04-22 11:00] LABS: AEROMONAS NOT DETECTED (NOT DETECTE); ASTROVIRUS NOT DETECTED (NOT DETECTE); CYCLOSPORA CAYETANENSIS NOT DETECTED (NOT DETECTE); E COLI O157 NOT DETECTED (NOT DETECTE); ENTEROAGGREGATIVE E COLI NOT DETECTED (NOT DETECTE); ENTEROPATHOGENIC E COLI NOT DETECTED (NOT DETECTE); ENTEROTOXIGENIC E COLI NOT DETECTED (NOT DETECTE); NOROVIRUS NOT DETECTED (NOT DETECTE); SAPOVIRUS NOT DETECTED (NOT DETECTE); SHIGA-LIKE TOXIN PROD. E COLI NOT DETECTED (NOT DETECTE); SHIGELLA/ENTEROINVASIVE E COLI NOT DETECTED (NOT DETECTE); VIBRIO CHOLERAE NOT DETECTED (NOT DETECTE)
== END ==
LOC: LAB 10:57
PROVIDERS: Physician Assistant
DX: R19.7 Diarrhea, unspecified (principal); Z86.19 Personal history of other infectious and parasitic diseases

== ENCOUNTER → 2017-05-16 | Outpatient (CLI) | payer MEDICARE ==
--- NOTE | 2017-05-16 13:42 | RADIOLOGY REPORT PS360 ---
CHEST(2 VIEWS-NOT PORTABLE) HISTORY: COPD, wheezing COPD ORDERING PHYSICIAN: JASSON CURIEL APRN PATIENT AGE: 67 years COMPARISON: 02/20/2017 FINDINGS: The cardiomediastinal silhouette and pulmonary vascularity are within normal limits. Mediport catheter is present from right subclavian approach. Vague nodular opacity is once again noted in the left upper lobe unchanged. Faint density is present in the right midlung having developed in the interval and could be due to an area of pneumonic infiltrate or developing nodule. No effusions. Mild degenerative changes thoracic spine. IMPRESSION: 1. No change left upper lobe nodule. 2. New opacity right midlung which could be due to an area of infiltrate or developing nodule. This measures approximately 13 mm. Follow-up suggested.
== END ==
LOC: RAD 12:07
DX: J44.1 Chronic obstructive pulmonary disease with (acute) exacerbation (principal)

== ENCOUNTER → 2017-05-17 | Outpatient (CLI) | payer MEDICARE | LOC: RT 14:35 | DX: J44.1 Chronic obstructive pulmonary disease with (acute) exacerbation (principal) ==

== ENCOUNTER → 2017-05-25 | Outpatient (CLI) | payer MEDICARE ==
--- NOTE | 2017-05-25 16:03 | RADIOLOGY REPORT PS360 ---
CHEST(2 VIEWS-NOT PORTABLE) HISTORY: COPD ORDERING PHYSICIAN: GEMINI POWELL PATIENT AGE: 67 years COMPARISON: 05/16/2017 FINDINGS: The cardiomediastinal silhouette and pulmonary vascularity are within normal limits. Nodular opacity is once again noted in the left upper lobe unchanged. Faint density in the right midlung is also noted unchanged. Right subclavian femoral catheter is noted with the tip in the region of the SVC. There is COPD with hyperinflation.. No acute bony abnormalities. IMPRESSION: 1. COPD with no change in the left upper lobe nodule. 2. No change in right midlung opacity which could be due to atelectasis or infiltrate
== END ==
LOC: RAD 15:06
DX: J44.1 Chronic obstructive pulmonary disease with (acute) exacerbation (principal)

== ENCOUNTER → 2017-06-09 | Outpatient (CLI) | payer MEDICARE ==
[2017-06-09 11:11] VITALS: BP 152/82; BP 160/87
== END ==
LOC: RT 09:52
DX: J44.9 Chronic obstructive pulmonary disease, unspecified (principal)

== ENCOUNTER 2017-06-15 10:10 | Outpatient (CLI) | payer MEDICARE ==
[~2017-06-15] VITALS: Ht 160 cm; Wt 74.4 kg
[2017-06-15 11:19] LABS: LYMPH # 2.1 K/mm3 (0.7-4.5)
[2017-06-15 12:04] VITALS: BP 155/79
[2017-06-15 12:25] VITALS: BP 145/77
[2017-06-15 12:45] VITALS: BP 140/72
== END 2017-06-15 12:50 | disposition home or self-care (01) ==
LOC: COP 10:10
PROVIDERS: Internal Medicine
DX: C34.92 Malignant neoplasm of unspecified part of left bronchus or lung (principal); Z51.11 Encounter for antineoplastic chemotherapy
CPT/HCPCS: J1642; J9271